=== PATIENT | female | born 1970 | race Caucasian/White ===

== ENCOUNTER 2023-01-06 10:21 | Outpatient (REF) | payer MEDICARE, MEDICAID, SELFPAY ==
[2023-01-06 10:53] LABS: MANUAL DIFF FLAG NO
[2023-01-06 11:15] LABS: Basophils Percent Auto 0.1 % (0-2); Eosinophils Absolute Auto 0.2 X10*3/uL (0.0-0.4); Eosinophils Percent Auto 1.8 % (0-4); Hematocrit 44.6 % (37.0-47.0); Hemoglobin 14.9 g/dl (12.0-16.0); Imm Gran Abs Auto 0.01 X10*3/uL (0.00-0.03); Imm Gran Pct Auto 0.1 % (0.0-0.4); Lymphocytes Absolute Auto 2.8 X10*3/uL (1.2-4.9); Lymphocytes Percent Auto 34.1 % (20-40); Mean Corpuscular HGB Conc 33.4 g/dl (31.0-35.0); Mean Corpuscular Hemoglobin 29.4 pg (27.0-33.0); Mean Platelet Volume 11.1 fL (9.4-12.3); Monocytes Absolute Auto 0.4 X10*3/uL (0.1-1.2); Monocytes Percent Auto 5.1 % (2-11); Neutrophils Absolute Auto 4.8 x10*3/uL (2.0-8.3); Neutrophils Percent Auto 58.8 % (45-73); Platelet Count 238 X10*3/uL (160-400); Red Blood Count 5.07 X10*6/uL (4.20-5.50); Red Cell Distribution Width 12.5 % (11.0-16.0); White Blood Count 8.2 X10*3/uL (4.8-10.8)
[2023-01-06 12:00] LABS: Alanine Aminotransferase 12 U/L (0-31); Albumin Level 4.1 g/dL (3.5-5.0); Alkaline Phosphatase 107 U/L (39-117); Anion Gap 11 (12-20); Aspartate Amino Transferase 16 U/L (5-31); Bilirubin Total 0.3 mg/dL (0.0-1.0); Blood Urea Nitrogen 9 mg/dL (9-16); Calcium 10.3 mg/dL (8.4-10.2); Carbon Dioxide 29 mmol/L (22-29); Chloride 102 mmol/L (96-108); Cholesterol 203 mg/dL; Estimated Glomerular Filt Rate > 60; Glucose Random 120 mg/dL (60-115); HDL Cholesterol 47 mg/dL; LDL Cholesterol Calculated 128 mg/dl; Potassium 4.3 mmol/L (3.3-5.1); Sodium 138 mmol/L (135-145); Total Protein 7.4 g/dL (6.5-8.0); Triglycerides 144 mg/dL
[2023-01-06 12:17] LABS: Thyroid Stimulating Hormone 1.26 uIU/mL (0.32-4.0)
[2023-01-07 03:27] LABS: HBc Num1 0.06 S/CO (0.00-0.79); HBsAGNum1 0.37 S/CO (0.00-0.99); Hepatitis B Core Antibody Nonreactive (Nonreactive); Hepatitis B Surface Antigen Negative (Negative); ~Hepatitis B Surface Antibody REACTIVE (Nonreactive)
[2023-01-11 13:53] LABS: HCV Log PCR <1.18 NOT DETECTED Log IU/mL (NOT DETECTED); HepC Viral Load <15 NOT DETECTED IU/mL (NOT DETECTED)
== END 2023-01-06 10:22 | disposition home or self-care (01) ==
LOC: HO.LAB 10:21
PROVIDERS: PCP Internal Medicine; Visit Provider Internal Medicine
DX: Z00.01 Encounter for general adult medical examination with abnormal findings (principal); R21 Rash and other nonspecific skin eruption; F43.12 Post-traumatic stress disorder, chronic; F43.22 Adjustment disorder with anxiety; B18.2 Chronic viral hepatitis C; F41.8 Other specified anxiety disorders
CPT/HCPCS: 36415; 80053; 80061; 84443; 85025; 86704; 86706; 87340; 87522

== ENCOUNTER 2023-02-03 13:10 | Outpatient (REF) | payer MEDICARE, MEDICAID, SELFPAY ==
[2023-02-03 14:36] LABS: Alanine Aminotransferase 10 U/L (0-31); Albumin Level 4.5 g/dL (3.5-5.0); Alkaline Phosphatase 112 U/L (39-117); Anion Gap 11 (12-20); Aspartate Amino Transferase 17 U/L (5-31); Bilirubin Total 0.4 mg/dL (0.0-1.0); Blood Urea Nitrogen 6 mg/dL (9-16); Calcium 10.3 mg/dL (8.4-10.2); Carbon Dioxide 27 mmol/L (22-29); Chloride 105 mmol/L (96-108); Estimated Average Glucose 103 mg/dL; Estimated Glomerular Filt Rate > 60; Glucose Random 93 mg/dL (60-115); Hemoglobin A1c % 5.2 % (<6.0); Potassium 3.7 mmol/L (3.3-5.1); Sodium 139 mmol/L (135-145); Total Protein 7.8 g/dL (6.5-8.0)
== END 2023-02-03 13:11 | disposition home or self-care (01) ==
LOC: HO.LAB 13:10
PROVIDERS: PCP Internal Medicine; Visit Provider Internal Medicine
DX: B18.2 Chronic viral hepatitis C (principal); R73.01 Impaired fasting glucose; Z72.0 Tobacco use
CPT/HCPCS: 36415; 80053; 83036

== ENCOUNTER 2024-01-08 18:24 | Inpatient (IN) | payer MEDICARE, SELFPAY ==
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
--- NOTE | 2024-01-08 18:26 | ED.PSYCH ---
HPI - Psych General Chief Complaint: Psychiatric Symptoms Stated Complaint: crisis Time Seen by Provider: 01/08/24 18:42 Source: patient, RN notes reviewed and old records reviewed Mode of arrival: ambulatory Limitations: no limitations History of Present Illness ED Provider: Olamide MOORE Narrative: 53-year-old female presents for evaluation depression with suicidal ideation. Patient reports she has had suicidal ideation for the past couple of days. She states that she has experienced lots of family and friends deaths recently. She has been self medicating with marijuana but denies any other drugs She reports that she has not been eating or drinking for the last 4-5 days due to her depression She feels nauseous and weak. She denies any pain Patient reports a plan to ?overdose on a whole bottle of my medications or stab myself. ? The patient is presenting from [facility] on a voluntary inpatient bed search Related Data Home Medications ?Medication ?Instructions ?Recorded ?Confirmed alprazolam 1 mg tablet 1 mg PO BID PRN Agitation 01/08/24 01/08/24 lithium carbonate 150 mg capsule 150 mg PO TID 01/08/24 01/08/24 mirtazapine 15 mg tablet 15 mg PO BEDTIME insomnia 01/08/24 01/08/24 zolpidem 10 mg tablet 10 mg PO BEDTIME 01/08/24 01/08/24 Allergies Allergy/AdvReac Type Severity Reaction Status Date / Time codeine [CODEINE] Allergy Unknown HIVES Unverified 01/08/24 18:30 meperidine [From DEMEROL] Allergy Unknown HIVES Unverified 01/08/24 18:30 Review of Systems Constitutional: Constitutional: Denies body ache(s), Denies chills, Denies fever(s), Denies headache(s), Reports malaise, Reports poor appetite and Reports weakness Eyes: Eyes: Denies blurry vision and Denies exophthalmos ENT: Denies vertigo, Denies dizziness and Denies headache(s) Cardiovascular: Cardiovascular: Denies chest pain and Denies dyspnea Respiratory: Respiratory: Denies cough and Denies dyspnea Gastrointestinal: Gastrointestinal: Denies abdominal pain, Reports nausea and Denies vomiting Musculoskeletal: Musculoskeletal: Denies back pain Integumentary/Breasts: Skin/Breast: Denies rash Neurologic: Denies vertigo, Denies dizziness, Denies headache(s) and Reports weakness Psychiatric: Psychiatric: Reports anxiety, Reports depression and Reports suicidal ideation [facility] Social History Social History Smoked in Last 30 Days: Yes Use of substances other than those prescribed or required for medical reasons: Yes Substance Use Type: Marijuana Advance Directives: No Advance Directives Information Provided: No Do you have a plan to hurt others: No Plan Patient : No Physical Exam Vital Signs: Vital Signs: Last Vital Signs Temp 98.3 F 01/09/24 06:01 Pulse 81 01/09/24 06:01 Resp 16 01/09/24 06:01 BP 111/68 01/09/24 06:01 Pulse Ox 98 01/09/24 06:01 O2 Del Method Room Air 01/09/24 06:01 BMI result Body Mass Index 28.3 Const: General: healthy appearing, comfortable, no acute distress, alert and awake Orientation/consciousness: patient oriented x3 HEENT: Head: Yes normocephalic and Yes atraumatic Eyes: Eyelids: Yes eyelids normal Conjunctivae: conjunctivae normal Sclerae: sclerae normal Corneas: corneas normal Pupils: Equal, round and reactive pupils present EOM: EOMs intact bilaterally Neck: Neck: Yes full ROM Resp: Effort & Inspection: normal respiratory effort, able to speak in complete sentences and not labored Cardio: Rate: regular rate Rhythm: regular rhythm GI: Inspection: No distended Palpation (GI): Soft to palpation, not firm, nontender, no guarding and not rigid Skin: General skin exam: no rashes or lesions noted and elasticity normal Neuro: General: patient oriented x3 Cranial nerves: Yes CN's II-XII intact bilaterally, Yes Equal, round and reactive pupils present and Yes Bilaterally intact EOM present Cognition (Neuro): normal cognition Psych: Appearance: grossly normal Mental Status: mental status grossly normal Speech and movement: Normal speech and movement present Affect: Sad affect present Attitude: cooperative Thought process: Normal thought process present Thought content: Suicidality present, no homicidality, no delusions and Depressive thoughts present Course Course Course Narrative: This is a rapid medical exam performed by Ismael Bravo NP: Additional HPI, ROS, PE not included below will be deferred to primary provider. Patient is a 53-year-old female with history of ADHD, PTSD, depression presenting to the emergency department with complaint of depression and suicidal ideation worsening. States her son on 10/17, brother in law with stage 4 CA, cousin recently diagnosed with leukemia, has been fighting with her other children since her son , all of this is making her feel suicidal. Plan to overdose on pills. Has Xanax, ambien, and many other medications at home. Plan: med clearance then CARE team shivam 01/09/2024 at 08:31 hours,Dr. Esvin Whitehead's note Start physician observation The patient has been in the emergency department for proximally 14 hours. The patient was evaluated by the care team and is a voluntary inpatient bed search for an [facility] bed for psychosis and vague suicidal ideation. There were no reported incidents on this patient by the overnight staff.Patient will remain in the emergency department Behavioral Health Unit until disposition can be determined or until patient's symptoms improve over time. Medications Administered Generic Name Dose Route Start Last Admin Trade Name Freq PRN Reason Stop Dose Admin Alprazolam 1 mg 01/08/24 19:23 01/09/24 07:30 Alprazolam 0.5 Mg Tablet PO 1 mg BID PRN Administration Agitation Helemano Carbonate 150 mg 01/08/24 21:00 01/09/24 08:03 Helemano Carbonate 300 Mg Tablet PO 150 mg TID LOUISE Administration Mirtazapine 15 mg 01/08/24 21:00 01/08/24 20:50 Mirtazapine 15 Mg Tablet PO 15 mg BEDTIME LOUISE Administration Zolpidem Tartrate 10 mg 01/08/24 21:00 01/08/24 20:50 Zolpidem Tartrate 5 Mg Tablet PO 10 mg BEDTIME LOUISE Administration Discontinued Medications Generic Name Dose Route Start Last Admin Trade Name Freq PRN Reason Stop Dose Admin Lorazepam 2 mg 01/08/24 19:25 01/08/24 19:31 Lorazepam 1 Mg Tablet PO 01/08/24 19:26 2 mg ONCE ONE Administration Medical Decision Making Medical Decision Making MDM Narrative: 53-year-old female presents for evaluation of suicidal ideation. Plan for medical clearance, she is already a voluntary bed search and does not require a care team consult at this time. Lab Data 01/08/24 19:34 01/08/24 19:35 Labs: Lab Results 01/08/24 01/08/24 01/08/24 Range/Units 18:59 19:34 19:35 WBC 8.8 (4.8-10.8) X10*3/uL RBC 5.80 H (4.20-5.50) X10*6/uL Hgb 17.6 H (12.0-16.0) g/dl Hct 50.0 H (37.0-47.0) % MCV 86.2 (80.0-98.0) fL MCH 30.3 (27.0-33.0) pg MCHC 35.2 H (31.0-35.0) g/dl RDW 12.6 (11.0-16.0) % Plt Count 244 (160-400) X10*3/uL MPV 11.0 (9.4-12.3) fL Immature Gran % (Auto) 0.2 (0.0-0.4) % Neut % (Auto) 60.7 (45-73) % Lymph % (Auto) 30.0 (20-40) % [place] % (Auto) 6.4 (2-11) % Eos % (Auto) 2.4 (0-4) % Baso % (Auto) 0.3 (0-2) % Lymph # (Auto) 2.6 (1.2-4.9) X10*3/uL [place] # (Auto) 0.6 (0.1-1.2) X10*3/uL Eos # (Auto) 0.2 (0.0-0.4) X10*3/uL Baso # (Auto) 0.0 (0.0-0.2) X10*3/uL Abs Immat Gran (auto) 0.02 (0.00-0.03) X10*3/uL Absolute Neuts (auto) 5.3 (2.0-8.3) x10*3/uL Absolute Nucleated RBC 0.000 (0.0-0.012) X10*3/uL Nucleated RBC % (auto) 0.0 (0.0-0.2) /100WBC Sodium 140 (135-145) mmol/L Potassium 4.3 (3.3-5.1) mmol/L Chloride 103 (96-108) mmol/L Carbon Dioxide 27 (22-29) mmol/L Anion Gap 14 (12-20) BUN 6 L (9-16) mg/dL Creatinine 0.86 (0.5-1.4) mg/dL Estim Creat Clear Calc 74.0 Estimated GFR > 60 Random Glucose 108 (60-115) mg/dL Calcium 10.8 H (8.4-10.2) mg/dL Total Bilirubin 0.5 (0.0-1.0) mg/dL AST 23 (5-31) U/L ALT 11 (0-31) U/L Alkaline Phosphatase 110 (39-117) U/L Total Protein 8.7 H (6.5-8.0) g/dL Albumin 4.9 (3.5-5.0) g/dL Urine Color Dark Yellow Urine Appearance Turbid Urine pH 5.5 (5.0-9.0) Ur Specific [place] 1.020 (1.005-1.025) Urine Protein 30 (1+) H (Neg-Trace) mg/dL Urine Glucose (UA) Negative (Negative) mg/dL Urine Ketones Trace (Negative) mg/dL Urine Blood Moderate (2+) H (Negative) Urine Nitrite Negative (Negative) Ur Leukocyte Esterase Small (1+) H (Negative) Urine RBC 6-10 H (0-2) /HPF Urine WBC 0-5 (0-5) /HPF Ur Squamous Epith Cells >20 (0-2) /HPF Urine Bacteria 4+ (None Seen) Hyaline Casts 11-20 (0-2) /LPF Salicylates < 5.0 L (15-30) mg/dL Urine Opiates Screen Not Detected (Not Detect) Ur Buprenorphine Scrn Not Detected (Not Detect) ng/mL Ur Oxycodone Screen Not Detected (Not Detect) ng/mL Urine Methadone Screen Not Detected (Not Detect) ng/mL Urine Fentanyl Screen Not Detected (Not Detect) Acetaminophen < 3 (<30) mcg/mL Ur Barbiturates Screen Not Detected (Not Detect) Ur Phencyclidine Scrn Not Detected (Not Detect) Ur Amphetamines Screen Not Detected (Not Detect) U Benzodiazepines Scrn POSITIVE H (Not Detect) Urine Cocaine Screen Not Detected (Not Detect) U Marijuana (THC) Screen POSITIVE H (Not Detect) Ethyl Alcohol < 10 mg/dL Discharge Plan Discharge Clinical Impression: Suicidal ideation Patient Disposition: Still a Patient Prescriptions: No Action alprazolam 1 mg tablet 1 mg PO BID PRN (Reason: Agitation) lithium carbonate 150 mg capsule 150 mg PO TID mirtazapine 15 mg tablet 15 mg PO BEDTIME zolpidem 10 mg tablet 10 mg PO BEDTIME Interventions: [place]-Suicide Risk Severity Scale Last Done: 01/08/24 18:46 Print Language: Georgian
[2024-01-08 18:27] VITALS: BP 135/85; PULSE 100; RESP 24; TEMP 37; O2SAT 97; BMI 28.3
--- NOTE | 2024-01-08 18:34 | MHC.CARE ---
Per [facility]- pt is a voluntary IPLOC. Pt has been struggling with depression since her son was murdered in September. Pt presents with psychosis, vague SI
[2024-01-08 18:46] VITALS: RESP 14
[2024-01-08 19:19] LABS: Amphetamine Screen Urine Not Detected (Not Detect); Barbiturates, Urine Not Detected (Not Detect); Benzodiazepines Screen Urine POSITIVE (Not Detect); Buprenorphine Scr Not Detected (Not Detect); Cannabinoid Screen Urine POSITIVE (Not Detect); Cocaine Screen Urine Not Detected (Not Detect); Fentanyl, urine Not Detected (Not Detect); Methadone Screen, Urine Not Detected (Not Detect); Opiate Screen Urine Not Detected (Not Detect); Oxycodone Screen Urine Not Detected (Not Detect); Phencyclidine Screen Urine Not Detected (Not Detect)
[2024-01-08 19:22] LABS: Appearance Urine Turbid; Color Urine Dark Yellow; Glucose Urine UA Negative (Negative); Leukocyte Esterase Urine Small (1+) (Negative); Nitrite Urine Negative (Negative); PH 5.5 (5.0-9.0); UMIC TRIGGER UACC YES; Urine Blood Moderate (2+) (Negative); Urine Ketones Trace mg/dL (Negative); Urine Protein 30 (1+) mg/dL (Neg-Trace)
[2024-01-08] MEDS: LORazepam 1 MG TABLET 2 MG PO (19:31)
[2024-01-08 19:40] LABS: Bacteria Urine 4+ (None Seen); Squamous Epithelial Cell Urine >20 /HPF (0-2); UACC Culture Trigger YES; WBC Urine 0-5 /HPF (0-5)
[2024-01-08 19:41] LABS: MANUAL DIFF FLAG NO
[2024-01-08 19:42] LABS: Basophils Percent Auto 0.3 % (0-2); Eosinophils Absolute Auto 0.2 X10*3/uL (0.0-0.4); Eosinophils Percent Auto 2.4 % (0-4); Hemoglobin 17.6 g/dl (12.0-16.0); Imm Gran Abs Auto 0.02 X10*3/uL (0.00-0.03); Imm Gran Pct Auto 0.2 % (0.0-0.4); Lymphocytes Absolute Auto 2.6 X10*3/uL (1.2-4.9); Mean Corpuscular HGB Conc 35.2 g/dl (31.0-35.0); Mean Corpuscular Hemoglobin 30.3 pg (27.0-33.0); Mean Corpuscular Volume 86.2 fL (80.0-98.0); Monocytes Absolute Auto 0.6 X10*3/uL (0.1-1.2); Monocytes Percent Auto 6.4 % (2-11); Neutrophils Absolute Auto 5.3 x10*3/uL (2.0-8.3); Neutrophils Percent Auto 60.7 % (45-73); Platelet Count 244 X10*3/uL (160-400); Red Cell Distribution Width 12.6 % (11.0-16.0); White Blood Count 8.8 X10*3/uL (4.8-10.8)
--- NOTE | 2024-01-08 19:42 | PC.NURSE ---
patient just arrived recently on unit, apparently inpatient psych bed search as determined by [facility] agency, mildly stressed, rocking seemingly to comfort self on rear communal couch where she resides, t/w obtained order for ativan 2mg po and administered, result pending.
[2024-01-08 19:59] LABS: Acetaminophen LAB < 3 mcg/mL (<30); Alanine Aminotransferase 11 U/L (0-31); Albumin Level 4.9 g/dL (3.5-5.0); Alkaline Phosphatase 110 U/L (39-117); Anion Gap 14 (12-20); Aspartate Amino Transferase 23 U/L (5-31); Bilirubin Total 0.5 mg/dL (0.0-1.0); Blood Urea Nitrogen 6 mg/dL (9-16); Calcium 10.8 mg/dL (8.4-10.2); Carbon Dioxide 27 mmol/L (22-29); Chloride 103 mmol/L (96-108); Estimated Glomerular Filt Rate > 60; Ethanol < 10 mg/dL; Glucose Random 108 mg/dL (60-115); Potassium 4.3 mmol/L (3.3-5.1); Salicylate < 5.0 mg/dL (15-30); Sodium 140 mmol/L (135-145); Total Protein 8.7 g/dL (6.5-8.0)
[2024-01-08] MEDS: Lithium Carbonate 300 MG TABLET 150 MG PO (20:49)
[2024-01-08] MEDS: Zolpidem Tartrate 5 MG TABLET 10 MG PO (20:50)
[2024-01-08] MEDS: Mirtazapine 15 MG TABLET PO (20:50)
--- NOTE | 2024-01-09 | ECG_ITS ---
Test Reason : R/O QTC PROLONGATION Blood Pressure : / mmHG Vent. Rate : 075 BPM Atrial Rate : 075 BPM P-R Int : 178 ms QRS Dur : 096 ms QT Int : 384 ms P-R-T Axes : 076 082 069 degrees QTc Int : 428 ms Normal sinus rhythm Normal ECG When compared with ECG of 14-JUL-2015 17:16, No significant change was found Referred By: Jae Maguire Electronically Signed By:KANDY GRANADOS
[2024-01-09 06:01] VITALS: BP 111/68; PULSE 81; RESP 16; TEMP 36.8; O2SAT 98
[2024-01-09] MEDS: ALPRAZolam 0.5 MG TABLET 1 MG PO (07:30)
--- NOTE | 2024-01-09 07:34 | PC.NURSE ---
Assumed care of patient at 0645, patient appears to be anxious this morning, rocking back and forth on the couch in BH 7, tearful. Patient unwilling to elaborate on stressors at this time. Patient offered PRN Alprazolam, patient accepted, administered per JUL. Continue plan of care for voluntary inpatient bedsearch via [facility] at this time
[2024-01-09] MEDS: Lithium Carbonate 300 MG TABLET 150 MG PO ×3 (08:03→21:48)
[2024-01-09] MEDS: Nicotine 21 MG PATCH.TD24 TRANSDERMA (09:59)
[2024-01-09] MEDS: hydrOXYzine HCL 25 MG TABLET PO ×2 (10:54→21:48)
[2024-01-09] MEDS: HaloperidoL 5 MG TABLET 10 MG PO (11:53)
[2024-01-09] MEDS: LORazepam 1 MG TABLET 2 MG PO (11:53)
[2024-01-09] MEDS: diphenhydrAMINE HCL 25 MG CAPSULE 50 MG PO (11:53)
--- NOTE | 2024-01-09 12:34 | MHC.EDTECH ---
patient belongings are in Locker 5 as of 1237 on 01/09/24
[2024-01-09 15:17] VITALS: RESP 16
[2024-01-09 15:27] VITALS: BP 110/62; PULSE 84; RESP 16; TEMP 36.4; O2SAT 99
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
[2024-01-09 20:00] VITALS: RESP 16
[2024-01-09] MEDS: Zolpidem Tartrate 5 MG TABLET 10 MG PO (21:48)
[2024-01-09] MEDS: Mirtazapine 15 MG TABLET PO (21:48)
[2024-01-10 08:00] VITALS: RESP 18
[2024-01-10] MEDS: Nicotine 21 MG PATCH.TD24 TRANSDERMA (08:35)
[2024-01-10] MEDS: ALPRAZolam 0.5 MG TABLET 1 MG PO ×2 (08:35→20:24)
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
[2024-01-10 09:16] LABS: Cholesterol 198 mg/dL (<200); HDL Cholesterol 47 mg/dL (>40); LDL Cholesterol Calculated 126 mg/dL (<100); Triglycerides 126 mg/dL (<150)
--- NOTE | 2024-01-10 09:19 | PC.NURSE ---
Cecil refused [place] due to being taken off of it a month ago. I am not an alcoholic. Kendall Joel MD and Shabana Ludwig NP made aware.
[2024-01-10 09:29] LABS: Estimated Average Glucose 108 mg/dL; Hemoglobin A1c % 5.4 % (<6.0)
[2024-01-10 12:59] LABS: Folate 6.5 ng/mL (> or = 4.0); Vitamin B12 546 pg/mL (200-900)
[2024-01-10] MEDS: hydrOXYzine HCL 25 MG TABLET PO ×2 (13:28→19:48)
[2024-01-10] MEDS: OLANZapine 5 MG TABLET PO (14:11)
--- NOTE | 2024-01-10 14:17 | MHC.CLN ---
RE: CONSULT HT 64 WT 165# IBW 120#+/-10% PT IS 138% IBW INDICATES OBESE FOR HT; BMI 28.3 PT REPORTS WT LOSS BUT NO PREVIOUS WT HX TO REVIEW REVIEWED LABS ENN: 1400KCALS, 61G PROTEIN, 1830ML FLUID DIET REGULAR-APPROPRIATE PLAN: MONITOR PO INTAKE CLOSELY; IF PO INTAKE <25% X 3 DAYS RECOMMEND ADDING NUTRITION SUPPLEMENT PT IS AT LOW NUTRITION RISK AT THIS TIME
[2024-01-10] MEDS: OLANZapine 10 MG TABLET PO (19:48)
[2024-01-10] MEDS: Mirtazapine 15 MG TABLET PO (20:59)
[2024-01-10] MEDS: Prazosin HCL 1 MG CAPSULE PO (20:59)
[2024-01-10 21:00] VITALS: BP 118/56; PULSE 74; RESP 16; TEMP 36.4; O2SAT 99
[2024-01-10] MEDS: Zolpidem Tartrate 5 MG TABLET 10 MG PO (21:00)
[2024-01-11] MEDS: ALPRAZolam 0.5 MG TABLET 1 MG PO (03:24)
[2024-01-11] MEDS: OLANZapine 5 MG TABLET PO ×2 (03:24→08:05)
--- NOTE | 2024-01-11 03:26 | PC.NURSE ---
Cecil reported elevated anxiety with racing thoughts. Patient reports feeling mildly agitated due to her thoughts. Patient given Zyprexa PO prn and Xanax PO prn
[2024-01-11 07:45] VITALS: BP 118/56; PULSE 77; RESP 18; TEMP 36.9; O2SAT 96
[2024-01-11] MEDS: hydrOXYzine HCL 25 MG TABLET PO (08:02)
[2024-01-11] MEDS: Nicotine 21 MG PATCH.TD24 TRANSDERMA (08:02)
[2024-01-11] MEDS: clonazePAM 1 MG TABLET PO ×3 (10:50→20:37)
[2024-01-11] MEDS: OLANZapine 10 MG TABLET PO ×2 (13:45→20:37)
--- NOTE | 2024-01-11 16:36 | HO.PSYCHPN ---
Subjective Subjective Date of Service: 01/11/24 Reason For Visit: SI Interim History: somewhat more calm than yesterday. poro sleep, up 4-5 times overnight with nightmares. zyprexa 5 mg PRN not effective. agreeable to increase remeron to 30 for sleep, prazosin to 2 for nightmares, and zyprexa to 10 PRN for severe anxiety. per staff, dep/anx. irritable, withdrawn. vague SI/HI. rocking. taking meds. slept about 6 hours. Mental Status Exam Mental Status Exam Narrative: adequately dressed and groomed. less rocking back and forth in chair. less restless. cooperative. speech incr rate, nml amount. nml loudness, tone. decr latency. thoughts linear and logical without delusions or paranoia. affect constricted, hyper-intense, non-labile. mood anxious. endorsing vague SI/HI to staff. no AVH. Diagnostics Vital Signs (24Hr): Vital Signs - 24 hr 01/10/24 21:00 01/11/24 07:45 Temperature 97.6 F 98.5 F Pulse Rate 74 77 Respiratory Rate 16 18 Blood Pressure 118/56 L 118/56 L Pulse Oximetry 99 96 Oxygen Delivery Method Room Air Room Air BMI result Body Mass Index 28.3 Labs 01/08/24 19:34 01/08/24 19:35 Labs: Laboratory Results - last 48 hr 01/10/24 08:30 Estimat Average Glucose 108 Hemoglobin A1c % 5.4 Triglycerides 126 Cholesterol 198 LDL Cholesterol, Calc 126 H HDL Cholesterol 47 Vitamin B12 546 Folate 6.5 TSH 2.80 Free T4 0.90 Medications Medications Current Medications Acetaminophen (Acetaminophen 325 Mg Tablet) 650 mg PO Q6H PRN PRN Reason: Headache/Pain Mild Scale (1-3) Al Hydroxide/Mg Hydroxide (Magnesium Hydrox/Alum Hydrox 30 Ml Oral.Susp) 30 ml PO Q6H PRN PRN Reason: Heartburn/Nausea Clonazepam (Clonazepam 1 Mg Tablet) 1 mg PO TID LOUISE Last Admin: 01/11/24 14:43 Dose: 1 mg Hydroxyzine HCl (Hydroxyzine Hcl 25 Mg Tablet) 25 mg PO Q6H PRN PRN Reason: Anxiety Last Admin: 01/11/24 08:02 Dose: 25 mg Magnesium Hydroxide (Milk Of Magnesia 30 Ml Oral.Susp) 30 ml PO DAILY PRN PRN Reason: Constipation Mirtazapine (Mirtazapine 30 Mg Tablet) 30 mg PO BEDTIME LOUISE Mirtazapine (Mirtazapine 15 Mg Tablet) 15 mg PO BEDTIME PRN PRN Reason: insomnia Nicotine (Nicotine 21 Mg Patch.Td24) 21 mg TRANSDERMA DAILY LOUISE Last Admin: 01/11/24 08:02 Dose: 21 mg Nicotine Polacrilex (Nicotine Polacrilex 2 Mg Gum) 2 mg BUCCAL Q2H PRN PRN Reason: Nicotine Cravings Olanzapine (Olanzapine 10 Mg Tablet) 10 mg PO BEDTIME LOUISE Last Admin: 01/10/24 19:48 Dose: 10 mg Olanzapine (Olanzapine 10 Mg Tablet) 10 mg PO Q4H PRN PRN Reason: agitation Last Admin: 01/11/24 13:45 Dose: 10 mg Prazosin HCl (Prazosin Hcl 1 Mg Capsule) 2 mg PO BEDTIME LOUISE; Protocol Zolpidem Tartrate (Zolpidem Tartrate 5 Mg Tablet) 10 mg PO BEDTIME LOUISE Last Admin: 01/10/24 21:00 Dose: 10 mg Allergies Allergies Allergy/AdvReac Type Severity Reaction Status Date / Time codeine [CODEINE] Allergy Unknown HIVES Verified 01/09/24 15:53 meperidine [From DEMEROL] Allergy Unknown HIVES Verified 01/09/24 15:53 Assessment & Plan Assessment & Plan (1) Chronic posttraumatic stress disorder: Status: Acute Code(s): F43.12 - Post-traumatic stress disorder, chronic (2) Suicidal ideation: Status: Acute Code(s): R45.851 - Suicidal ideations (3) Homicidal ideation: Status: Acute Code(s): R45.850 - Homicidal ideations Plan 01/09: start prazosin at HS for nightmares and insomnia in PTSD. start zyprexa PRNs for agit/anx. start zyp 10 at HS for insomnia/agitation. DC lithium as Sx are adequately explained by PTSD Dx presently. otherwise continue current mgmt. 01/10: increase remeron to 30 for sleep, prazosin to 2 for nightmares, and zyprexa to 10 PRN for severe anxiety. affect slightly less intense than yesterday. still doing a lot of rocking. Reason for continued inpatient stay Substantial Risk for: harm to self, harm to others and inability to function Time Spent With Patient Time: Total time managing care of this patient today _25___ minutes.
[2024-01-11 21:30] VITALS: BP 122/60; PULSE 88; RESP 16
[2024-01-11] MEDS: Zolpidem Tartrate 5 MG TABLET 10 MG PO (21:33)
[2024-01-11] MEDS: Mirtazapine 30 MG TABLET PO (21:33)
[2024-01-11] MEDS: Prazosin HCL 1 MG CAPSULE 2 MG PO (21:33)
[2024-01-12] MEDS: hydrOXYzine HCL 25 MG TABLET PO ×3 (00:05→12:22)
[2024-01-12] MEDS: OLANZapine 10 MG TABLET PO ×5 (00:05→20:15)
[2024-01-12] MEDS: Mirtazapine 15 MG TABLET PO ×2 (00:06→20:17)
[2024-01-12 07:00] VITALS: BMI 25.0
[2024-01-12] MEDS: Nicotine 21 MG PATCH.TD24 TRANSDERMA (07:06)
[2024-01-12 08:00] VITALS: BP 110/61; PULSE 90; RESP 20; TEMP 36.6; O2SAT 99
[2024-01-12] MEDS: clonazePAM 1 MG TABLET PO ×3 (08:39→20:15)
[2024-01-12] MEDS: Acetaminophen 325 MG TABLET 650 MG PO ×2 (09:09→20:22)
[2024-01-12 19:30] VITALS: BP 125/61; PULSE 94; RESP 16; TEMP 36.6; O2SAT 97
[2024-01-12] MEDS: Mirtazapine 30 MG TABLET PO (20:15)
[2024-01-12] MEDS: Prazosin HCL 1 MG CAPSULE 3 MG PO (20:16)
[2024-01-12] MEDS: Zolpidem Tartrate 5 MG TABLET 10 MG PO (20:16)
--- NOTE | 2024-01-12 21:05 | HO.PSYCHPN ---
Subjective Subjective Date of Service: 01/12/24 Reason For Visit: SI Interim History: rocking, anxious, poor sleep. acknowledges episode last night of tying sheet around neck and then changing her mind and removing it. informed of change to Q5 min checks. reporting anxiety mildly decreased. nightmares continue, no sided effects from prazosin, agrees to increase to 3 mg QHS. per staff, dep/anx 10. passive SI. taking meds. rocking back and forth. mourning son's . anxious, guarded, visible. slept about 5 hours. Mental Status Exam Mental Status Exam Narrative: adequately dressed and groomed. less rocking back and forth in chair. less restless. cooperative. speech incr rate, nml amount. nml loudness, tone. decr latency. thoughts linear and logical without delusions or paranoia. affect constricted, hyper-intense, non-labile. mood anxious. endorsing vague SI to staff. near-SA last NOC. no AVH. Diagnostics Vital Signs (24Hr): Vital Signs - 24 hr 01/11/24 21:30 01/12/24 08:00 01/12/24 19:30 Temperature 97.8 F 97.8 F Pulse Rate 88 90 94 Respiratory Rate 16 20 16 Blood Pressure 122/60 110/61 125/61 Pulse Oximetry 99 97 Oxygen Delivery Method Room Air Room Air BMI result Body Mass Index 25.0 Labs 01/08/24 19:34 01/08/24 19:35 Medications Medications Current Medications Acetaminophen (Acetaminophen 325 Mg Tablet) 650 mg PO Q6H PRN PRN Reason: Headache/Pain Mild Scale (1-3) Last Admin: 01/12/24 20:22 Dose: 650 mg Al Hydroxide/Mg Hydroxide (Magnesium Hydrox/Alum Hydrox 30 Ml Oral.Susp) 30 ml PO Q6H PRN PRN Reason: Heartburn/Nausea Clonazepam (Clonazepam 1 Mg Tablet) 1 mg PO TID LOUISE Last Admin: 01/12/24 20:15 Dose: 1 mg Hydroxyzine HCl (Hydroxyzine Hcl 25 Mg Tablet) 25 mg PO Q6H PRN PRN Reason: Anxiety Last Admin: 01/12/24 12:22 Dose: 25 mg Magnesium Hydroxide (Milk Of Magnesia 30 Ml Oral.Susp) 30 ml PO DAILY PRN PRN Reason: Constipation Mirtazapine (Mirtazapine 30 Mg Tablet) 30 mg PO BEDTIME LOUISE Last Admin: 01/12/24 20:15 Dose: 30 mg Mirtazapine (Mirtazapine 15 Mg Tablet) 15 mg PO BEDTIME PRN PRN Reason: insomnia Last Admin: 01/12/24 20:17 Dose: 15 mg Nicotine (Nicotine 21 Mg Patch.Td24) 21 mg TRANSDERMA DAILY LOUISE Last Admin: 01/12/24 07:06 Dose: 21 mg Nicotine Polacrilex (Nicotine Polacrilex 2 Mg Gum) 2 mg BUCCAL Q2H PRN PRN Reason: Nicotine Cravings Olanzapine (Olanzapine 10 Mg Tablet) 10 mg PO BEDTIME LOUISE Last Admin: 01/12/24 20:15 Dose: 10 mg Olanzapine (Olanzapine 10 Mg Tablet) 10 mg PO Q4H PRN PRN Reason: agitation Last Admin: 01/12/24 17:20 Dose: 10 mg Prazosin HCl (Prazosin Hcl 1 Mg Capsule) 3 mg PO BEDTIME LOUISE; Protocol Last Admin: 01/12/24 20:16 Dose: 3 mg Zolpidem Tartrate (Zolpidem Tartrate 5 Mg Tablet) 10 mg PO BEDTIME LOUISE Last Admin: 01/12/24 20:16 Dose: 10 mg Allergies Allergies Allergy/AdvReac Type Severity Reaction Status Date / Time codeine [CODEINE] Allergy Unknown HIVES Verified 01/09/24 15:53 meperidine [From DEMEROL] Allergy Unknown HIVES Verified 01/09/24 15:53 Assessment & Plan Assessment & Plan (1) Chronic posttraumatic stress disorder: Status: Acute Code(s): F43.12 - Post-traumatic stress disorder, chronic (2) Suicidal ideation: Status: Acute Code(s): R45.851 - Suicidal ideations (3) Homicidal ideation: Status: Acute Code(s): R45.850 - Homicidal ideations Plan 01/09: start prazosin at HS for nightmares and insomnia in PTSD. start zyprexa PRNs for agit/anx. start zyp 10 at HS for insomnia/agitation. DC lithium as Sx are adequately explained by PTSD Dx presently. otherwise continue current mgmt. 01/10: increase remeron to 30 for sleep, prazosin to 2 for nightmares, and zyprexa to 10 PRN for severe anxiety. affect slightly less intense than yesterday. still doing a lot of rocking. start klonopin 1 TID. 01/11: increase prazosin to 3 mg tonight. continue other meds. no substantial change in presentation from yesterday. Reason for continued inpatient stay Substantial Risk for: harm to self, harm to others and inability to function Time Spent With Patient Time: Total time managing care of this patient today __25__ minutes.
[2024-01-13] MEDS: hydrOXYzine HCL 25 MG TABLET PO (00:29)
[2024-01-13] MEDS: OLANZapine 10 MG TABLET PO ×4 (00:29→20:52)
[2024-01-13] MEDS: Nicotine 21 MG PATCH.TD24 TRANSDERMA (06:52)
[2024-01-13 07:20] VITALS: BP 114/55; PULSE 92; RESP 14; TEMP 36.4; O2SAT 97
[2024-01-13] MEDS: clonazePAM 1 MG TABLET PO ×3 (08:31→20:52)
--- NOTE | 2024-01-13 17:50 | HO.PSYCHPN ---
Subjective Subjective Date of Service: 01/13/24 Reason For Visit: SI Interim History: poor sleep. nightmares. agreeable to increase prazosin to 4 mg, remeron to 30. anxiety remains moderately improved. per staff, anx. taking meds. using PRNs. rocking. tearful. dep 10 anx 9. c/o back and neck pain. irritable. slept about 4 hours, broken sleep. Mental Status Exam Mental Status Exam Narrative: adequately dressed and groomed. less rocking back and forth in chair. less restless. cooperative. speech incr rate, nml amount. nml loudness, tone. decr latency. thoughts linear and logical without delusions or paranoia. affect constricted, hyper-intense, non-labile. mood anxious. +SI. no HI/AVH expressed. Diagnostics Vital Signs (24Hr): Vital Signs - 24 hr 01/12/24 19:30 01/13/24 07:20 Temperature 97.8 F 97.5 F Pulse Rate 94 92 Respiratory Rate 16 14 Blood Pressure 125/61 114/55 L Pulse Oximetry 97 97 Oxygen Delivery Method Room Air Room Air BMI result Body Mass Index 25.0 Labs 01/08/24 19:34 01/08/24 19:35 Medications Medications Current Medications Acetaminophen (Acetaminophen 325 Mg Tablet) 650 mg PO Q6H PRN PRN Reason: Headache/Pain Mild Scale (1-3) Last Admin: 01/12/24 20:22 Dose: 650 mg Al Hydroxide/Mg Hydroxide (Magnesium Hydrox/Alum Hydrox 30 Ml Oral.Susp) 30 ml PO Q6H PRN PRN Reason: Heartburn/Nausea Clonazepam (Clonazepam 1 Mg Tablet) 1 mg PO TID [facility] Last Admin: 01/13/24 14:26 Dose: 1 mg Hydroxyzine HCl (Hydroxyzine Hcl 50 Mg Tablet) 50 mg PO Q6H PRN PRN Reason: Anxiety Magnesium Hydroxide (Milk Of Magnesia 30 Ml Oral.Susp) 30 ml PO DAILY PRN PRN Reason: Constipation Mirtazapine (Mirtazapine 30 Mg Tablet) 30 mg PO BEDTIME [facility] Last Admin: 01/12/24 20:15 Dose: 30 mg Mirtazapine (Mirtazapine 30 Mg Tablet) 30 mg PO BEDTIME PRN PRN Reason: insomnia Nicotine (Nicotine 21 Mg Patch.Td24) 21 mg TRANSDERMA DAILY [facility] Last Admin: 01/13/24 06:52 Dose: 21 mg Nicotine Polacrilex (Nicotine Polacrilex 2 Mg Gum) 2 mg BUCCAL Q2H PRN PRN Reason: Nicotine Cravings Olanzapine (Olanzapine 10 Mg Tablet) 10 mg PO BEDTIME LOUISE Last Admin: 01/12/24 20:15 Dose: 10 mg Olanzapine (Olanzapine 10 Mg Tablet) 10 mg PO Q4H PRN PRN Reason: agitation Last Admin: 01/13/24 04:31 Dose: 10 mg Prazosin HCl (Prazosin Hcl 1 Mg Capsule) 4 mg PO BEDTIME LOUISE; Protocol Zolpidem Tartrate (Zolpidem Tartrate 5 Mg Tablet) 10 mg PO BEDTIME LOUISE Last Admin: 01/12/24 20:16 Dose: 10 mg Allergies Allergies Allergy/AdvReac Type Severity Reaction Status Date / Time codeine [CODEINE] Allergy Unknown HIVES Verified 01/09/24 15:53 meperidine [From DEMEROL] Allergy Unknown HIVES Verified 01/09/24 15:53 Assessment & Plan Assessment & Plan (1) Chronic posttraumatic stress disorder: Status: Acute Code(s): F43.12 - Post-traumatic stress disorder, chronic (2) Suicidal ideation: Status: Acute Code(s): R45.851 - Suicidal ideations (3) Homicidal ideation: Status: Acute Code(s): R45.850 - Homicidal ideations Plan 01/09: start prazosin at HS for nightmares and insomnia in PTSD. start zyprexa PRNs for agit/anx. start zyp 10 at HS for insomnia/agitation. DC lithium as Sx are adequately explained by PTSD Dx presently. otherwise continue current mgmt. 01/10: increase remeron to 30 for sleep, prazosin to 2 for nightmares, and zyprexa to 10 PRN for severe anxiety. affect slightly less intense than yesterday. still doing a lot of rocking. start klonopin 1 TID. 01/11: increase prazosin to 3 mg tonight. continue other meds. no substantial change in presentation from yesterday. 01/12: remains with modest improvement, +SI, insomnia, nightmares. increase remeron to 30 and prazosin to 4. Reason for continued inpatient stay Substantial Risk for: harm to self, harm to others, inability to function and rapid decompensation Time Spent With Patient Time: Total time managing care of this patient today __25__ minutes.
[2024-01-13] MEDS: Acetaminophen 325 MG TABLET 650 MG PO (18:29)
[2024-01-13] MEDS: hydrOXYzine HCL 50 MG TABLET PO (20:07)
[2024-01-13 20:45] VITALS: BP 112/58; PULSE 94; RESP 18; TEMP 36.4; O2SAT 98
[2024-01-13] MEDS: Mirtazapine 30 MG TABLET PO ×2 (20:52)
[2024-01-13] MEDS: Zolpidem Tartrate 5 MG TABLET 10 MG PO (20:52)
[2024-01-13] MEDS: Prazosin HCL 1 MG CAPSULE 4 MG PO (20:52)
[2024-01-14] MEDS: OLANZapine 10 MG TABLET PO ×4 (02:30→18:19)
[2024-01-14] MEDS: hydrOXYzine HCL 50 MG TABLET PO ×2 (02:30→15:21)
[2024-01-14] MEDS: Nicotine 21 MG PATCH.TD24 TRANSDERMA (06:56)
[2024-01-14] MEDS: Acetaminophen 325 MG TABLET 650 MG PO (06:58)
[2024-01-14 07:10] VITALS: BP 116/63; PULSE 95; RESP 18; TEMP 36.4; O2SAT 97
[2024-01-14] MEDS: Lidocaine 4 % Patch ADH..PATCH 1 PATCH TRANSDERMA (07:48)
[2024-01-14] MEDS: clonazePAM 1 MG TABLET PO ×3 (08:16→21:25)
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
[2024-01-14 20:00] VITALS: BP 113/59; PULSE 98; RESP 16; TEMP 36.5; O2SAT 98
[2024-01-14] MEDS: chlorproMAZINE HCl 100 MG TABLET PO (21:24)
[2024-01-14 21:25] VITALS: BP 147/74
[2024-01-14] MEDS: Prazosin HCL 5 MG CAPSULE PO (21:25)
[2024-01-14] MEDS: Mirtazapine 30 MG TABLET PO (21:25)
[2024-01-14] MEDS: Zolpidem Tartrate 5 MG TABLET 10 MG PO (21:26)
[2024-01-15] MEDS: OLANZapine 10 MG TABLET PO (00:58)
[2024-01-15] MEDS: Mirtazapine 15 MG TABLET PO ×2 (00:58→23:23)
[2024-01-15] MEDS: Acetaminophen 325 MG TABLET 650 MG PO ×2 (03:02→21:06)
[2024-01-15] MEDS: hydrOXYzine HCL 50 MG TABLET PO ×3 (03:03→23:23)
[2024-01-15] MEDS: Nicotine 21 MG PATCH.TD24 TRANSDERMA (05:46)
--- NOTE | 2024-01-15 05:49 | PC.NURSE ---
Patient up and out of bed at 0540 asking for her 0900 Nicotine patch. This abstract writer explained patch is not due until at least 0800. Patient became agitated and stated I was told I could have the effing patch after 0500 if I was awake. This abstract writer explained to patient that she would be given the patch and provider would be notified to put in an order to dispense patch early, at patient request.
--- NOTE | 2024-01-15 05:54 | PC.NURSE ---
Patient said she would like to have Colace ordered. Will pass on to next shift.
[2024-01-15 07:48] VITALS: BP 122/58; PULSE 107; RESP 16; TEMP 36.4; O2SAT 98
[2024-01-15] MEDS: Lidocaine 4 % Patch ADH..PATCH 1 PATCH TRANSDERMA (08:32)
[2024-01-15] MEDS: clonazePAM 1 MG TABLET PO ×3 (08:32→20:25)
[2024-01-15] MEDS: chlorproMAZINE HCl 25 MG TABLET 75 MG PO ×2 (13:01→18:16)
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
[2024-01-15 20:00] VITALS: BP 106/52; PULSE 96; RESP 16; TEMP 36.6; O2SAT 98
[2024-01-15 21:40] VITALS: BP 125/68
[2024-01-15] MEDS: Prazosin HCL 1 MG CAPSULE 6 MG PO (21:40)
[2024-01-15] MEDS: Mirtazapine 30 MG TABLET PO (21:41)
[2024-01-15] MEDS: chlorproMAZINE HCl 100 MG TABLET 200 MG PO (21:41)
[2024-01-15] MEDS: Zolpidem Tartrate 5 MG TABLET 10 MG PO (21:41)
[2024-01-16] MEDS: Acetaminophen 325 MG TABLET 650 MG PO ×3 (05:15→18:42)
[2024-01-16] MEDS: chlorproMAZINE HCl 25 MG TABLET 75 MG PO (05:23)
[2024-01-16] MEDS: Lidocaine 4 % Patch ADH..PATCH 1 PATCH TRANSDERMA (09:15)
[2024-01-16] MEDS: clonazePAM 1 MG TABLET PO ×3 (09:15→22:16)
[2024-01-16] MEDS: Nicotine 21 MG PATCH.TD24 TRANSDERMA (09:32)
[2024-01-16] MEDS: chlorproMAZINE HCl 100 MG TABLET PO (11:55)
[2024-01-16 13:50] VITALS: BP 131/56; PULSE 114; RESP 14; TEMP 36.8; O2SAT 96
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
[2024-01-16] MEDS: Throat Lozenge, Medicated LOZENGE 1 LOZENGE MUCOUS MEM (14:18)
[2024-01-16] MEDS: Milk of Magnesia 30 ML ORAL.SUSP PO (17:47)
[2024-01-16 22:00] VITALS: PULSE 99; RESP 16; TEMP 36.8; O2SAT 96
[2024-01-16 22:15] VITALS: BP 119/71
[2024-01-16] MEDS: chlorproMAZINE HCl 100 MG TABLET 300 MG PO (22:15)
[2024-01-16] MEDS: Prazosin HCL 1 MG CAPSULE 7 MG PO (22:15)
[2024-01-16] MEDS: Zolpidem Tartrate 5 MG TABLET 10 MG PO (22:16)
[2024-01-16] MEDS: hydrOXYzine HCL 50 MG TABLET PO (22:16)
[2024-01-16] MEDS: Mirtazapine 15 MG TABLET PO (22:16)
[2024-01-17] MEDS: chlorproMAZINE HCl 100 MG TABLET PO ×2 (02:29→17:46)
[2024-01-17] MEDS: Nicotine 21 MG PATCH.TD24 TRANSDERMA (07:11)
[2024-01-17 08:00] VITALS: BP 126/60; PULSE 100; RESP 16; TEMP 36.5; O2SAT 97
[2024-01-17] MEDS: clonazePAM 1 MG TABLET PO ×3 (09:10→22:03)
[2024-01-17] MEDS: Acetaminophen 325 MG TABLET 650 MG PO (09:32)
[2024-01-17] MEDS: Milk of Magnesia 30 ML ORAL.SUSP PO (09:32)
[2024-01-17] MEDS: Lidocaine 4 % Patch ADH..PATCH 1 PATCH TRANSDERMA (09:32)
[2024-01-17] MEDS: polyethylene glycoL 3350 17 GM POWD.PACK PO (14:46)
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
[2024-01-17] MEDS: hydrOXYzine HCL 50 MG TABLET PO (17:46)
[2024-01-17 20:00] VITALS: BP 99/52; PULSE 109; RESP 17; TEMP 36.5; O2SAT 96
[2024-01-17 22:01] VITALS: BP 102/62
[2024-01-17] MEDS: Sennosides/Docusate Sodium TABLET 2 TAB PO (22:01)
[2024-01-17] MEDS: Prazosin HCL 1 MG CAPSULE 8 MG PO (22:01)
[2024-01-17] MEDS: chlorproMAZINE HCl 100 MG TABLET 200 MG PO (22:01)
[2024-01-17] MEDS: Mirtazapine 15 MG TABLET PO (22:04)
[2024-01-17] MEDS: Zolpidem Tartrate 5 MG TABLET 10 MG PO (22:04)
[2024-01-18] MEDS: polyethylene glycoL 3350 17 GM POWD.PACK PO ×2 (04:35→10:22)
[2024-01-18] MEDS: Milk of Magnesia 30 ML ORAL.SUSP PO (05:35)
[2024-01-18] MEDS: Nicotine 21 MG PATCH.TD24 TRANSDERMA (05:35)
[2024-01-18 07:56] VITALS: BP 123/59; PULSE 99; RESP 16; TEMP 36.7; O2SAT 96
[2024-01-18] MEDS: hydrOXYzine HCL 50 MG TABLET PO (09:24)
[2024-01-18] MEDS: clonazePAM 1 MG TABLET PO ×3 (09:31→21:01)
[2024-01-18] MEDS: Lidocaine 4 % Patch ADH..PATCH 1 PATCH TRANSDERMA (10:22)
[2024-01-18] MEDS: Sodium Phosphate,Mono-Dibasic 133 ML ENEMA PR (13:28)
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
[2024-01-18] MEDS: chlorproMAZINE HCl 100 MG TABLET PO ×2 (14:03→18:03)
[2024-01-18] MEDS: Acetaminophen 325 MG TABLET 650 MG PO (14:03)
[2024-01-18] MEDS: Magnesium Hydrox/Alum Hydrox 30 ML ORAL.SUSP PO (18:05)
[2024-01-18 20:53] VITALS: BP 120/58; PULSE 98; RESP 18; TEMP 36.5; O2SAT 97
[2024-01-18] MEDS: chlorproMAZINE HCl 100 MG TABLET 200 MG PO (21:00)
[2024-01-18] MEDS: Prazosin HCL 1 MG CAPSULE 9 MG PO (21:00)
[2024-01-18] MEDS: Zolpidem Tartrate 5 MG TABLET 10 MG PO (21:01)
[2024-01-18] MEDS: Mirtazapine 15 MG TABLET PO (21:01)
[2024-01-18] MEDS: Sennosides/Docusate Sodium TABLET 2 TAB PO (21:01)
[2024-01-19 07:00] VITALS: BMI 27.2
[2024-01-19 08:00] VITALS: BP 122/65; PULSE 113; RESP 16; TEMP 36.6; O2SAT 97
[2024-01-19] MEDS: Nicotine 21 MG PATCH.TD24 TRANSDERMA (08:21)
[2024-01-19] MEDS: clonazePAM 1 MG TABLET PO ×3 (08:23→20:24)
[2024-01-19] MEDS: Lidocaine 4 % Patch ADH..PATCH 1 PATCH TRANSDERMA (10:22)
[2024-01-19] MEDS: polyethylene glycoL 3350 17 GM POWD.PACK PO (10:25)
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
[2024-01-19 19:35] VITALS: BP 129/63; PULSE 111; RESP 18; TEMP 36.5; O2SAT 98
[2024-01-19] MEDS: Sennosides/Docusate Sodium TABLET 2 TAB PO (20:23)
[2024-01-19] MEDS: Zolpidem Tartrate 5 MG TABLET 10 MG PO (20:23)
[2024-01-19] MEDS: Mirtazapine 15 MG TABLET PO (20:23)
[2024-01-19] MEDS: Prazosin HCL 1 MG CAPSULE 4 MG PO (20:24)
[2024-01-19] MEDS: chlorproMAZINE HCl 25 MG TABLET 150 MG PO (20:24)
[2024-01-19] MEDS: Prazosin HCL 5 MG CAPSULE PO (20:24)
[2024-01-19] MEDS: Acetaminophen 325 MG TABLET 650 MG PO (20:24)
[2024-01-20] MEDS: Nicotine 21 MG PATCH.TD24 TRANSDERMA (07:09)
[2024-01-20 07:10] VITALS: BP 123/56; PULSE 96; RESP 20; TEMP 36.5; O2SAT 97
[2024-01-20] MEDS: clonazePAM 1 MG TABLET PO ×3 (09:31→20:49)
[2024-01-20] MEDS: Acetaminophen 325 MG TABLET 650 MG PO (09:46)
[2024-01-20] MEDS: Lidocaine 4 % Patch ADH..PATCH 1 PATCH TRANSDERMA (10:34)
[2024-01-20] MEDS: Ibuprofen 600 MG TABLET PO ×2 (11:55→20:49)
[2024-01-20] MEDS: chlorproMAZINE HCl 100 MG TABLET PO (12:44)
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
[2024-01-20 20:00] VITALS: BP 130/75; PULSE 98; RESP 17; O2SAT 98
[2024-01-20] MEDS: chlorproMAZINE HCl 25 MG TABLET 150 MG PO (20:45)
[2024-01-20] MEDS: Zolpidem Tartrate 5 MG TABLET 10 MG PO (20:46)
[2024-01-20] MEDS: Mirtazapine 15 MG TABLET PO (20:49)
[2024-01-20 20:50] VITALS: BP 130/75
[2024-01-20] MEDS: Prazosin HCL 5 MG CAPSULE 10 MG PO (20:50)
[2024-01-21] MEDS: Ibuprofen 600 MG TABLET PO (06:48)
[2024-01-21] MEDS: Acetaminophen 325 MG TABLET 650 MG PO (06:48)
[2024-01-21 07:20] VITALS: BP 116/53; PULSE 107; RESP 18; TEMP 36.5; O2SAT 95
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
[2024-01-21] MEDS: clonazePAM 1 MG TABLET PO ×3 (08:41→20:32)
[2024-01-21] MEDS: chlorproMAZINE HCl 100 MG TABLET PO ×3 (08:43→15:56)
[2024-01-21] MEDS: Nicotine 21 MG PATCH.TD24 TRANSDERMA (08:43)
[2024-01-21 20:00] VITALS: BP 126/61; PULSE 110; RESP 18; TEMP 36.9; O2SAT 97
[2024-01-21] MEDS: Zolpidem Tartrate 5 MG TABLET 10 MG PO (20:31)
[2024-01-21] MEDS: chlorproMAZINE HCl 25 MG TABLET 150 MG PO (20:32)
[2024-01-21] MEDS: Prazosin HCL 5 MG CAPSULE 10 MG PO (20:32)
[2024-01-21] MEDS: Mirtazapine 15 MG TABLET PO (20:32)
[2024-01-21] MEDS: OXcarbazepine 150 MG TABLET PO (20:32)
[2024-01-22] MEDS: Nicotine 21 MG PATCH.TD24 TRANSDERMA (06:56)
[2024-01-22] MEDS: Ibuprofen 600 MG TABLET PO (06:56)
[2024-01-22 07:10] VITALS: BP 115/56; PULSE 108; RESP 14; TEMP 36.4; O2SAT 96
[2024-01-22] MEDS: clonazePAM 1 MG TABLET PO ×3 (09:01→20:30)
[2024-01-22] MEDS: OXcarbazepine 150 MG TABLET PO ×2 (09:01→20:30)
[2024-01-22] MEDS: Acetaminophen 325 MG TABLET 650 MG PO (09:04)
[2024-01-22] MEDS: chlorproMAZINE HCl 100 MG TABLET PO ×2 (11:07→15:20)
[2024-01-22 20:26] VITALS: BP 129/56; PULSE 103; RESP 18; TEMP 36.3; O2SAT 96
[2024-01-22] MEDS: Prazosin HCL 5 MG CAPSULE 10 MG PO (20:29)
[2024-01-22] MEDS: Zolpidem Tartrate 5 MG TABLET 10 MG PO (20:30)
[2024-01-22] MEDS: Mirtazapine 15 MG TABLET PO (20:30)
[2024-01-22] MEDS: chlorproMAZINE HCl 25 MG TABLET 150 MG PO (20:30)
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
[2024-01-23 08:04] VITALS: BP 112/71; PULSE 113; RESP 18; TEMP 36.7; O2SAT 97
[2024-01-23] MEDS: clonazePAM 1 MG TABLET PO ×3 (08:13→20:17)
[2024-01-23] MEDS: OXcarbazepine 150 MG TABLET PO ×2 (08:13→12:09)
[2024-01-23] MEDS: Nicotine 21 MG PATCH.TD24 TRANSDERMA (08:13)
[2024-01-23] MEDS: chlorproMAZINE HCl 100 MG TABLET PO ×3 (09:49→21:38)
[2024-01-23] MEDS: OLANZapine ODT 10 MG TAB.RAPDIS TRANSLINGU (12:09)
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
[2024-01-23 19:59] VITALS: BP 124/70; PULSE 107; RESP 18; TEMP 37; O2SAT 95
[2024-01-23] MEDS: Zolpidem Tartrate 5 MG TABLET 10 MG PO (20:17)
[2024-01-23] MEDS: OXcarbazepine 300 MG TABLET PO (20:17)
[2024-01-23] MEDS: Mirtazapine 15 MG TABLET PO (20:17)
[2024-01-23] MEDS: Prazosin HCL 5 MG CAPSULE 10 MG PO (20:17)
[2024-01-23] MEDS: chlorproMAZINE HCl 25 MG TABLET 150 MG PO (20:17)
[2024-01-24] MEDS: Nicotine 21 MG PATCH.TD24 TRANSDERMA (05:10)
[2024-01-24] MEDS: Ibuprofen 600 MG TABLET PO (05:11)
[2024-01-24] MEDS: chlorproMAZINE HCl 100 MG TABLET PO (07:05)
[2024-01-24 07:40] VITALS: BP 123/59; PULSE 96; RESP 16; TEMP 36.7; O2SAT 97
[2024-01-24] MEDS: clonazePAM 1 MG TABLET PO (08:32)
[2024-01-24] MEDS: OXcarbazepine 300 MG TABLET PO (08:32)
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
== END 2024-01-24 12:43 | disposition home or self-care (01) | DRG 882 ==
LOC: HO.ED 01-09 08:30 → HO.PADLT16 01-09 14:27
PROVIDERS: Registered Nurse Emergency; Admitting Provider Psychiatry & Neurology Psychiatry; Emergency Provider Emergency Medicine Emergency Medical Services; PCP Internal Medicine; Visit Provider Psychiatry & Neurology Psychiatry
DX: F43.12 Post-traumatic stress disorder, chronic (principal); R45.851 Suicidal ideations; F17.210 Nicotine dependence, cigarettes, uncomplicated; Z71.6 Tobacco abuse counseling; R45.850 Homicidal ideations; K59.00 Constipation, unspecified; Z91.51 Personal history of suicidal behavior; Z63.4 Disappearance and death of family member; Z79.899 Other long term (current) drug therapy
CPT/HCPCS: 36415; 70486; 80053; 80061; 80143; 80179; 80307; 81001; 82607; 82746; 83036; 84439; 84443; 85025; 87086; 93005; 99285; S9485

== ENCOUNTER → 2024-01-09 08:51 | Outpatient (BNV) | payer MEDICARE, SELFPAY | PROVIDERS: Emergency Provider Emergency Medicine Emergency Medical Services; PCP Internal Medicine; Visit Provider Internal Medicine | DX: R45.851 Suicidal ideations (principal) | CPT/HCPCS: 93010 ==

== ENCOUNTER → 2024-01-09 14:08 | Outpatient (BNV) | payer MEDICARE, SELFPAY | PROVIDERS: Admitting Provider Psychiatry & Neurology Psychiatry; Emergency Provider Emergency Medicine Emergency Medical Services; PCP Internal Medicine; Visit Provider Psychiatry & Neurology Psychiatry | DX: F43.12 Post-traumatic stress disorder, chronic (principal); R45.851 Suicidal ideations; R45.850 Homicidal ideations | CPT/HCPCS: 99232 ==

== ENCOUNTER → 2024-01-09 14:08 | Outpatient (BNV) | payer MEDICARE, SELFPAY | PROVIDERS: Admitting Provider Psychiatry & Neurology Psychiatry; Emergency Provider Emergency Medicine Emergency Medical Services; PCP Internal Medicine; Visit Provider Psychiatry & Neurology Psychiatry | DX: F43.12 Post-traumatic stress disorder, chronic (principal); R45.851 Suicidal ideations; R45.850 Homicidal ideations | CPT/HCPCS: 90792; 99232; 99239 ==

== ENCOUNTER 2024-02-20 10:05 | Inpatient (IN) | payer MEDICARE, SELFPAY ==
--- NOTE | 2024-02-20 10:13 | PC.NURSE ---
Security to bedside to loom changeover operator pt. and to secure belongings. Pt. also on 1:1 sitter at this time.
[2024-02-20 10:16] VITALS: BP 122/70; BP 130/50; PULSE 66; PULSE 88; RESP 18; TEMP 35.6; O2SAT 100; O2SAT 99; BMI 27.5
--- NOTE | 2024-02-20 10:29 | PC.NURSE ---
Pt. states that she wants to kill herself (with no plan) and endorses of feeling HI (HI only directed to whomever killed her son). Pt. remains on a 1:1 sitter at this time.
[2024-02-20 10:30] VITALS: BP 130/50; PULSE 88; RESP 18; TEMP 35.6; O2SAT 100
[2024-02-20] MEDS: Nicotine 21 MG PATCH.TD24 TRANSDERMA (11:34)
--- NOTE | 2024-02-20 11:37 | ED.GENADULT ---
HPI - General Adult General Chief complaint: Psychiatric Symptoms Stated complaint: SI/HI W/NO SPECIFIC PLAN PER EMS Time Seen by Provider: 02/20/24 11:36 Source: patient and EMS Mode of arrival: EMS Limitations: no limitations History of Present Illness ED Provider: Zeynep Del Valle PA-C HPI narrative: Patient is a 53 year old assigned female at with a history of PTSD presenting to the emergency department today with suicidal ideation. Patient states that she was seeing her therapist when she voiced that she was suicidal. Patient states that she has felt more depressed after her son was murdered a few months ago. Patient denies any dizziness, lightheadedness, abdominal pain, nausea, vomiting, fever, chills, blurry vision, double vision, loss of vision, chest pain, difficulty breathing, shortness of breath, back pain, night sweats, pain with urination, increased urinary frequency, increased urinary urgency, blood in her urine or stool, syncope or a near syncopal episode, recent trauma or falls, bowel incontinence, bladder incontinence, or any other complaints at this time. Relieving factors: none Exacerbating factors: none Associated symptoms: denies other symptoms Treatments prior to arrival: none Related Data Home Medications ?Medication ?Instructions ?Recorded ?Confirmed mupirocin 2 % topical ointment 1 appl topical TID PRN Open Sores 02/20/24 02/20/24 naproxen 500 mg tablet 500 mg PO BID 02/20/24 02/20/24 chlorpromazine 100 mg tablet 100 mg PO TID PRN Agitation 02/21/24 02/21/24 chlorpromazine 100 mg tablet 150 mg PO BEDTIME 02/21/24 02/21/24 Previous Rx's ?Medication ?Instructions ?Recorded clonazepam 1 mg tablet 1 mg PO TID 14 days #42 tabs 01/24/24 mirtazapine 15 mg tablet 15 mg PO BEDTIME insomnia 30 days 01/24/24 #30 tabs nicotine 21 mg/24 hr daily 21 mg transdermal DAILY PRN 01/24/24 transdermal patch nicotine craving 28 days #28 ea oxcarbazepine 300 mg tablet 300 mg PO BID 30 days #60 tabs 01/24/24 prazosin 5 mg capsule 10 mg (2 x 5 mg) PO BEDTIME 30 01/24/24 days #60 caps zolpidem 10 mg tablet 10 mg PO BEDTIME 14 days #14 tabs 01/24/24 Allergies Allergy/AdvReac Type Severity Reaction Status Date / Time codeine [CODEINE] Allergy Unknown HIVES Verified 02/20/24 10:28 meperidine [From DEMEROL] Allergy Unknown HIVES Verified 02/20/24 10:28 Review of Systems Constitutional: Constitutional: Reports no additional constitutional complaints, Denies chills, Denies fever(s) and Denies night sweats Eyes: Eyes: Reports no additional eye complaints, Denies blurry vision, Denies change in vision, Denies diplopia, Denies eye discharge, Denies loss of vision and Denies eye pain ENT: Denies dizziness Cardiovascular: Cardiovascular: Reports no additional cardiovascular complaints, Denies chest pain, Denies lightheadedness, Denies Loss of Consciousness and Denies dyspnea Respiratory: Respiratory: Reports no additional respiratory complaints and Denies dyspnea Gastrointestinal: Gastrointestinal: Reports no additional gastrointestinal complaints, Denies abdominal pain, Denies melena, Denies hematochezia, Denies change in bowel habits and Denies change in stool character Genitourinary: Genitourinary: Denies hematuria, Denies urinary frequency, Denies dysuria, Denies urinary incontinence, Denies urinary hesitancy and Denies urinary urgency Musculoskeletal: Musculoskeletal: Reports no additional musculoskeletal complaints, Denies numbness and Denies tingling Neurologic: Denies dizziness, Denies loss of vision, Denies numbness and Denies tingling Psychiatric: Psychiatric: Denies homicidal ideation and Reports suicidal ideation Endocrine: Endocrine: Reports no additional endocrine complaints Hematologic/Lymphatic: Hematologic/Lymphatic: Reports no additional hematologic/lymphatic complaints Allergic/Immunologic: Allergic/Immunologic: Reports no additional allergic/immunologic complaints PMFSH Past Medical History Attestation statement: The following information was validated with the patient. Source: old records reviewed and nursing notes reviewed Social History Social History Household Members: Family Housing: Apartment Do you presently have visiting nurse or other home services: No Patient Tobacco Use Status: Current everyday Tobacco user Tobacco use type: Cigarette Smoked in Last 30 Days: Yes e-Cigarette/Vaping Use: Never Used Second Hand Smoke Exposure: Yes Use of substances other than those prescribed or required for medical reasons: Yes Substance Use Type: Marijuana Substance Use Frequency: Daily Advance Directives: No Advance Directives Information Provided: Yes Do you have a plan to hurt others: Vague Patient : No service: No Sexual orientation: Don't Know Physical Exam ED Vital Signs: Vital Signs - 24 hr 02/20/24 20:45 02/20/24 20:45 Respiratory Rate 18 Blood Pressure 107/56 L 107/56 L Oxygen Delivery Method Room Air BMI result Body Mass Index 27.5 Const General: cooperative, no acute distress, alert and awake Nutritional Appearance: well nourished Orientation/consciousness: patient oriented x3 Limitations: no limitations HENMT Head: Yes normal to inspection and Yes atraumatic Ears: hearing grossly normal bilaterally and external ears normal General nose exam: Normal external nose present, no nasal discharge noted and no epistaxis Face and sinus: Yes normal facial exam, No abrasion and No laceration Mouth: Normal oral and palatal mucosa present, no drooling and no muffled voice Eyes General: appearance normal, both eyes and all related structures Periorbital: periorbital findings normal Eyelids: Yes eyelids normal Conjunctivae: conjunctivae normal Pupils: Equal, round and reactive pupils present EOM: EOMs intact bilaterally Neck Neck: Yes normal visual inspection, Yes full ROM and Yes no lymphadenopathy Chest Chest palpation & inspection: normal inspection of the chest Resp Effort & Inspection: normal respiratory effort and able to speak in complete sentences GI Inspection: Yes normal to inspection Neuro General: patient oriented x3 and moves all extremities Cranial nerves: Yes Equal, round and reactive pupils present Cognition (Neuro): normal cognition Extrem General: Yes normal to inspection, Yes full ROM and Yes capillary refill normal Psych Appearance: grossly normal Mental Status: mental status grossly normal Affect: Sad affect present Attitude: Guarded attititude/behavior present Thought content: Suicidality present Course Reevaluation(s) Reevaluation #1: The patient has been accepted for admission to our psychiatric inpatient unit. The patient has been stable in the emergency department. The patient has been on physician observation. This will be ended when the patient leaves for the inpatient psychiatric unit. Medications Administered Generic Name Dose Route Start Last Admin Trade Name Freq PRN Reason Stop Dose Admin Chlorpromazine HCl 100 mg 02/20/24 15:30 02/20/24 15:40 Chlorpromazine Hcl 100 Mg Tablet PO 100 mg TID PRN Administration AGITATION Chlorpromazine HCl 150 mg 02/20/24 21:00 02/20/24 20:48 Chlorpromazine Hcl 100 Mg Tablet PO 150 mg BEDTIME LOUISE Administration Clonazepam 1 mg 02/20/24 15:30 02/21/24 08:36 Clonazepam 1 Mg Tablet PO 1 mg TID LOUISE Administration Mirtazapine 15 mg 02/20/24 21:00 02/20/24 20:47 Mirtazapine 15 Mg Tablet PO 15 mg BEDTIME LOUISE Administration Naproxen 500 mg 02/20/24 21:00 02/21/24 09:13 Naproxen 500 Mg Tablet PO 500 mg BID LOUISE Administration Nicotine 21 mg 02/20/24 15:22 02/21/24 08:36 Nicotine 21 Mg Patch.Td24 TRANSDERMA 21 mg DAILY PRN Administration nicotine craving Oxcarbazepine 300 mg 02/20/24 21:00 02/21/24 08:36 Oxcarbazepine 300 Mg Tablet PO 300 mg BID LOUISE Administration Prazosin HCl 10 mg 02/20/24 21:00 02/20/24 20:45 Prazosin Hcl 5 Mg Capsule PO Not Given BEDTIME LOUISE Protocol Zolpidem Tartrate 10 mg 02/20/24 21:00 02/20/24 20:48 Zolpidem Tartrate 5 Mg Tablet PO 10 mg BEDTIME LOUISE Administration Discontinued Medications Generic Name Dose Route Start Last Admin Trade Name Freq PRN Reason Stop Dose Admin Lorazepam 1 mg 02/20/24 13:56 02/20/24 14:12 Lorazepam 1 Mg Tablet PO 02/20/24 13:57 1 mg ONCE ONE Administration Lorazepam 1 mg 02/21/24 12:49 02/21/24 12:58 Lorazepam 1 Mg Tablet PO 02/21/24 12:50 1 mg ONCE ONE Administration Nicotine 21 mg 02/20/24 11:29 02/20/24 11:34 Nicotine 21 Mg Patch.Td24 TRANSDERMA 02/20/24 11:30 21 mg ONCE ONE Administration Medical Decision Making Medical Decision Making [facility] Narrative: Patient is a 53 year old assigned female at with a history of PTSD presenting to the emergency department today with suicidal ideation. Patient's physical exam was as noted in the physical exam portion of this note. Patient's blood work was unremarkable. Patient's urine showed no acute process. I explained my physical exam findings as well as all test results to the patient. I answered all questions asked by the patient. Patient was evaluated by the CARE team who recommended inpatient level of psychiatric care. Differential Diagnosis Differential Diagnoses: The differential diagnosis associated with the presentation includes Suicidal ideation Depression Admission/Observation Consideration of admission/observation: Escalation of care including admission/observation considered Patient will either be admitted here for inpatient of psychiatric care or transferred to an appropriate inpatient psychiatric facility. Consult Healthcare Provider Management of the patient was discussed with: Behavioral Health Provider (spoke with the CARE team as noted in the MDM Rationale portion of this note.) Lab Data [facility] Lab Attestation statement: I reviewed the patient's lab results. My interpretation of these results are in the MDM Rationale portion of this note. 02/20/24 12:04 02/20/24 12:04 Labs: Lab Results 02/20/24 02/20/24 Range/Units 12:04 13:08 WBC 8.0 (4.8-10.8) X10*3/uL RBC 4.71 (4.20-5.50) X10*6/uL Hgb 14.2 (12.0-16.0) g/dl Hct 41.4 (37.0-47.0) % MCV 87.9 (80.0-98.0) fL MCH 30.1 (27.0-33.0) pg MCHC 34.3 (31.0-35.0) g/dl RDW 13.2 (11.0-16.0) % Plt Count 231 (160-400) X10*3/uL MPV 10.7 (9.4-12.3) fL Immature Gran % (Auto) 0.3 (0.0-0.4) % Neut % (Auto) 56.9 (45-73) % Lymph % (Auto) 33.5 (20-40) % [place] % (Auto) 6.7 (2-11) % Eos % (Auto) 2.3 (0-4) % Baso % (Auto) 0.3 (0-2) % Lymph # (Auto) 2.7 (1.2-4.9) X10*3/uL [place] # (Auto) 0.5 (0.1-1.2) X10*3/uL Eos # (Auto) 0.2 (0.0-0.4) X10*3/uL Baso # (Auto) 0.0 (0.0-0.2) X10*3/uL Abs Immat Gran (auto) 0.02 (0.00-0.03) X10*3/uL Absolute Neuts (auto) 4.5 (2.0-8.3) x10*3/uL Absolute Nucleated RBC 0.000 (0.0-0.012) X10*3/uL Nucleated RBC % (auto) 0.0 (0.0-0.2) /100WBC Smear Tech's Comments VERIFIED Sodium 139 (135-145) mmol/L Potassium 4.7 (3.3-5.1) mmol/L Chloride 104 (96-108) mmol/L Carbon Dioxide 28 (22-29) mmol/L Anion Gap 12 (12-20) BUN 8 L (9-16) mg/dL Creatinine 0.75 (0.5-1.4) mg/dL Estim Creat Clear Calc 83.7 Estimated GFR > 60 Random Glucose 112 (60-115) mg/dL Calcium 9.8 D (8.4-10.2) mg/dL Total Bilirubin 0.3 (0.0-1.0) mg/dL AST 17 (5-31) U/L ALT 12 (0-31) U/L Alkaline Phosphatase 95 (39-117) U/L Total Protein 7.7 (6.5-8.0) g/dL Albumin 4.4 (3.5-5.0) g/dL Beta HCG, Quant 3 mIU/mL Urine Color Yellow Urine Appearance Clear Urine pH 6.5 (5.0-9.0) Ur Specific [place] <= 1.005 (1.005-1.025) Urine Protein Negative (Neg-Trace) mg/dL Urine Glucose (UA) Negative (Negative) mg/dL Urine Ketones Negative (Negative) mg/dL Urine Blood Negative (Negative) Urine Nitrite Negative (Negative) Ur Leukocyte Esterase Negative (Negative) Urine Opiates Screen Not Detected (Not Detect) Ur Buprenorphine Scrn Not Detected (Not Detect) ng/mL Ur Oxycodone Screen Not Detected (Not Detect) ng/mL Urine Methadone Screen Not Detected (Not Detect) ng/mL Urine Fentanyl Screen Not Detected (Not Detect) Ur Barbiturates Screen Not Detected (Not Detect) Ur Phencyclidine Scrn Not Detected (Not Detect) Ur Amphetamines Screen Not Detected (Not Detect) U Benzodiazepines Scrn Not Detected (Not Detect) Urine Cocaine Screen Not Detected (Not Detect) U Marijuana (THC) Screen POSITIVE H (Not Detect) Independent Historian Clinical information obtained from an independent historian. History obtained from or confirmed by: EMS (EMS provided additional history and confirmed the history provided by the patient.) Critical Care Time Critical Care Time Critical Care Time: Yes Total Critical Care Time: 34 Attestation: I spent 34 minutes of Critical Care Time with this patient. This does not include time spent on separately reported billable procedures. Discharge Plan Discharge Clinical Impression: Suicidal ideation Patient Disposition: Admitted As Inpatient Interventions: [place]-Suicide Risk Severity Scale Last Done: 02/20/24 10:34
[2024-02-20 12:14] LABS: Basophils Percent Auto 0.3 % (0-2); Eosinophils Absolute Auto 0.2 X10*3/uL (0.0-0.4); Eosinophils Percent Auto 2.3 % (0-4); Hematocrit 41.4 % (37.0-47.0); Hemoglobin 14.2 g/dl (12.0-16.0); Imm Gran Abs Auto 0.02 X10*3/uL (0.00-0.03); Imm Gran Pct Auto 0.3 % (0.0-0.4); Lymphocytes Absolute Auto 2.7 X10*3/uL (1.2-4.9); Lymphocytes Percent Auto 33.5 % (20-40); MANUAL DIFF FLAG SCAN; Mean Corpuscular HGB Conc 34.3 g/dl (31.0-35.0); Mean Corpuscular Hemoglobin 30.1 pg (27.0-33.0); Mean Corpuscular Volume 87.9 fL (80.0-98.0); Mean Platelet Volume 10.7 fL (9.4-12.3); Monocytes Absolute Auto 0.5 X10*3/uL (0.1-1.2); Monocytes Percent Auto 6.7 % (2-11); Neutrophils Absolute Auto 4.5 x10*3/uL (2.0-8.3); Neutrophils Percent Auto 56.9 % (45-73); PLT CLUMP 1; Red Blood Count 4.71 X10*6/uL (4.20-5.50); Red Cell Distribution Width 13.2 % (11.0-16.0); SCAN SMEAR FLAG 1
[2024-02-20 12:26] LABS: Alanine Aminotransferase 12 U/L (0-31); Albumin Level 4.4 g/dL (3.5-5.0); Alkaline Phosphatase 95 U/L (39-117); Anion Gap 12 (12-20); Aspartate Amino Transferase 17 U/L (5-31); Bilirubin Total 0.3 mg/dL (0.0-1.0); Blood Urea Nitrogen 8 mg/dL (9-16); Calcium 9.8 mg/dL (8.4-10.2); Carbon Dioxide 28 mmol/L (22-29); Chloride 104 mmol/L (96-108); Creatinine Clr Calc Pharmacy 83.7; Estimated Glomerular Filt Rate > 60; Glucose Random 112 mg/dL (60-115); Potassium 4.7 mmol/L (3.3-5.1); Sodium 139 mmol/L (135-145); Total Protein 7.7 g/dL (6.5-8.0)
[2024-02-20 12:29] LABS: HCG Quantitative 3 mIU/mL
[2024-02-20 12:31] VITALS: RESP 20; TEMP 36.1; O2SAT 96
[2024-02-20 12:46] LABS: Platelet Count 231 X10*3/uL (160-400); SLIDE REVIEW VERIFIED
--- NOTE | 2024-02-20 13:00 | PC.NURSE ---
Pt. remains on 11 sitter at this time.
[2024-02-20 13:17] LABS: Appearance Urine Clear; Color Urine Yellow; Glucose Urine UA Negative (Negative); Leukocyte Esterase Urine Negative (Negative); Nitrite Urine Negative (Negative); PH 6.5 (5.0-9.0); Specific Gravity - Urine <= 1.005 (1.005-1.025); Urine Blood Negative (Negative); Urine Ketones Negative (Negative); Urine Protein Negative (Neg-Trace)
[2024-02-20 13:26] LABS: Amphetamine Screen Urine Not Detected (Not Detect); Barbiturates, Urine Not Detected (Not Detect); Benzodiazepines Screen Urine Not Detected (Not Detect); Buprenorphine Scr Not Detected (Not Detect); Cannabinoid Screen Urine POSITIVE (Not Detect); Cocaine Screen Urine Not Detected (Not Detect); Fentanyl, urine Not Detected (Not Detect); Methadone Screen, Urine Not Detected (Not Detect); Opiate Screen Urine Not Detected (Not Detect); Oxycodone Screen Urine Not Detected (Not Detect); Phencyclidine Screen Urine Not Detected (Not Detect)
--- NOTE | 2024-02-20 14:00 | PC.NURSE ---
Pt. transferred to pod to CAND[facility] Mota.
[2024-02-20] MEDS: LORazepam 1 MG TABLET PO (14:12)
--- NOTE | 2024-02-20 15:09 | MHC.CARE ---
Patient is an [facility] bedsearch.
[2024-02-20] MEDS: clonazePAM 1 MG TABLET PO ×2 (15:40→20:37)
[2024-02-20] MEDS: chlorproMAZINE HCl 100 MG TABLET PO (15:40)
[2024-02-20 20:45] VITALS: BP 107/56; RESP 18
[2024-02-20] MEDS: NaPROXEN 500 MG TABLET PO (20:47)
[2024-02-20] MEDS: Mirtazapine 15 MG TABLET PO (20:47)
[2024-02-20] MEDS: chlorproMAZINE HCl 100 MG TABLET 150 MG PO (20:48)
[2024-02-20] MEDS: Zolpidem Tartrate 5 MG TABLET 10 MG PO (20:48)
[2024-02-20] MEDS: OXcarbazepine 300 MG TABLET PO (20:49)
--- NOTE | 2024-02-20 20:52 | PC.NURSE ---
Bp 86/38 and 91/44 while laying down. While sitting it improved to 107/56. Held prazosin
--- NOTE | 2024-02-21 07:13 | PC.NURSE ---
Assumed care of patient at 0645. At this time the patient is resting quietly in their bed. No signs of distress observed.
[2024-02-21] MEDS: OXcarbazepine 300 MG TABLET PO ×2 (08:36→20:58)
[2024-02-21] MEDS: clonazePAM 1 MG TABLET PO ×3 (08:36→20:59)
[2024-02-21] MEDS: Nicotine 21 MG PATCH.TD24 TRANSDERMA (08:36)
--- NOTE | 2024-02-21 08:40 | PHA.MEDREC ---
Addendum entered by Diego Oritz RPh 02/21/24 08:46: Reviewed by [facility] Original Note: Pharmacy Consult ? Medication Reconciliation Pharmacy has reviewed the medication reconciliation done by nurse. Utilized claims and discharge packet from 01/24/24 to confirm med list
[2024-02-21] MEDS: NaPROXEN 500 MG TABLET PO ×2 (09:13→20:57)
--- NOTE | 2024-02-21 12:56 | ECG_ITS ---
Test Reason : QT EVAL Blood Pressure : / mmHG Vent. Rate : 080 BPM Atrial Rate : 080 BPM P-R Int : 196 ms QRS Dur : 098 ms QT Int : 384 ms P-R-T Axes : 069 073 063 degrees QTc Int : 442 ms Normal sinus rhythm Normal ECG When compared with ECG of 09-JAN-2024 08:51, QT has lengthened Referred By: Generic ED Physician Electronically Signed By:RACHELLE OMER
[2024-02-21] MEDS: LORazepam 1 MG TABLET PO (12:58)
[2024-02-21 13:57] VITALS: BP 126/69; PULSE 81; RESP 16; TEMP 36.4; O2SAT 98
[2024-02-21 14:18] VITALS: BMI 27.3
[2024-02-21] MEDS: Acetaminophen 325 MG TABLET 650 MG PO (16:38)
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
[2024-02-21] MEDS: Flu Vacc TS2024-25(6mos up)/PF 0.5 ML SYRINGE IM (17:29)
[2024-02-21 20:00] VITALS: BP 112/57; PULSE 80; RESP 16; TEMP 36.2; O2SAT 96
[2024-02-21] MEDS: chlorproMAZINE HCl 25 MG TABLET 150 MG PO (20:56)
[2024-02-21] MEDS: Mirtazapine 15 MG TABLET PO (20:57)
[2024-02-21] MEDS: Zolpidem Tartrate 5 MG TABLET 10 MG PO (20:58)
[2024-02-21] MEDS: Prazosin HCL 5 MG CAPSULE 10 MG PO (20:58)
[2024-02-22] MEDS: Nicotine 21 MG PATCH.TD24 TRANSDERMA (06:52)
[2024-02-22 07:39] VITALS: BP 121/56; PULSE 98; RESP 20; TEMP 36.6; O2SAT 95
[2024-02-22] MEDS: clonazePAM 1 MG TABLET PO ×3 (08:17→20:26)
[2024-02-22] MEDS: NaPROXEN 500 MG TABLET PO ×2 (08:17→20:26)
[2024-02-22] MEDS: OXcarbazepine 300 MG TABLET PO ×2 (08:18→20:24)
[2024-02-22] MEDS: Acetaminophen 325 MG TABLET 650 MG PO (08:21)
[2024-02-22] MEDS: hydrOXYzine HCL 25 MG TABLET PO (08:22)
[2024-02-22] MEDS: chlorproMAZINE HCl 100 MG TABLET PO ×2 (08:22→13:29)
[2024-02-22 13:28] VITALS: BP 112/56; PULSE 95
[2024-02-22] MEDS: cloNIDine HCL 0.1 MG TABLET PO (13:29)
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
[2024-02-22 20:00] VITALS: BP 108/52; PULSE 86; RESP 16; TEMP 36.3; O2SAT 93
[2024-02-22] MEDS: PRAZOSIN 12 MG PO (20:24)
[2024-02-22] MEDS: Zolpidem Tartrate 5 MG TABLET 10 MG PO (20:25)
[2024-02-22] MEDS: chlorproMAZINE HCl 25 MG TABLET 150 MG PO (20:26)
[2024-02-22] MEDS: Mirtazapine 30 MG TABLET PO (20:26)
[2024-02-23 03:40] VITALS: BP 110/56
[2024-02-23] MEDS: hydrOXYzine HCL 25 MG TABLET PO (03:40)
[2024-02-23] MEDS: chlorproMAZINE HCl 100 MG TABLET PO ×2 (03:40→12:52)
[2024-02-23] MEDS: cloNIDine HCL 0.1 MG TABLET PO ×2 (03:40→12:52)
[2024-02-23 07:00] VITALS: BMI 28.4
[2024-02-23] MEDS: Nicotine 21 MG PATCH.TD24 TRANSDERMA (07:22)
[2024-02-23 07:41] VITALS: BP 110/54; PULSE 104; RESP 16; TEMP 36.4; O2SAT 97
[2024-02-23] MEDS: NaPROXEN 500 MG TABLET PO ×2 (08:06→21:30)
[2024-02-23] MEDS: OXcarbazepine 300 MG TABLET PO ×2 (08:07→21:29)
[2024-02-23] MEDS: clonazePAM 1 MG TABLET PO ×3 (08:07→21:30)
[2024-02-23 12:49] VITALS: BP 119/59; PULSE 76
--- NOTE | 2024-02-23 13:42 | P.PNPSI_ITS ---
Subjective Subjective Date of Service: 02/23/24 Reason For Visit: SI/HI Interim History: some rocking. cooperative. feels thorazine and clonidine combo was helpful. up twice for nightmares overnight. reporting some lightheadedness in the mornings, declines to increase prazosin further. per staff, worsened depression, anxiety 03/08. using all PRNs. taking meds. up at 0340 for PRNs. slept 7+ hours. Mental Status Exam Mental Status Exam Narrative: adequately dressed and groomed. up and about in the milieu. cooperative. speech nml rate, amount. nml loudness, tone. nml latency. thoughts linear and logical without delusions or paranoia. affect constricted, hyper-intense, non- labile. mood anxious and depressed. no SI/SIBI/HI/AVH expressed. Diagnostics Vital Signs (24Hr): Vital Signs - 24 hr 02/22/24 20:00 02/23/24 03:40 02/23/24 07:41 Temperature 97.3 F 97.5 F Pulse Rate 86 104 H Respiratory Rate 16 16 Blood Pressure 108/52 L 110/56 L 110/54 L Pulse Oximetry 93 97 Oxygen Delivery Method Room Air Room Air 02/23/24 12:49 Temperature Pulse Rate 76 Respiratory Rate Blood Pressure 119/59 L Pulse Oximetry Oxygen Delivery Method BMI result Body Mass Index 28.4 Labs 02/20/24 12:04 02/20/24 12:04 Medications Medications Current Medications Acetaminophen (Acetaminophen 325 Mg Tablet) 650 mg PO Q6H PRN PRN Reason: Headache/Pain Mild Scale (1-3) Last Admin: 02/22/24 08:21 Dose: 650 mg Al Hydroxide/Mg Hydroxide (Magnesium Hydrox/Alum Hydrox 30 Ml Oral.Susp) 30 ml PO Q6H PRN PRN Reason: Heartburn/Nausea Benzocaine (Throat Lozenge, Medicated Lozenge) 1 lozenge MUCOUS MEM Q1H PRN PRN Reason: Sore Throat Chlorpromazine HCl (Chlorpromazine Hcl 100 Mg Tablet) 100 mg PO TID PRN PRN Reason: Agitation Last Admin: 02/23/24 12:52 Dose: 100 mg Chlorpromazine HCl (Chlorpromazine Hcl 25 Mg Tablet) 150 mg PO BEDTIME [facility] Last Admin: 09/25/24 20:26 Dose: 150 mg Clonazepam (Clonazepam 1 Mg Tablet) 1 mg PO TID [facility] Last Admin: 02/23/24 08:07 Dose: 1 mg Clonidine HCl (Clonidine Hcl 0.1 Mg Tablet) 0.1 mg PO TID PRN; Protocol PRN Reason: severe anxiety Last Admin: 02/23/24 12:52 Dose: 0.1 mg Magnesium Hydroxide (Milk Of Magnesia 30 Ml Oral.Susp) 30 ml PO DAILY PRN PRN Reason: Constipation Mirtazapine (Mirtazapine 30 Mg Tablet) 30 mg PO BEDTIME [facility] Last Admin: 02/22/24 20:26 Dose: 30 mg Mupirocin (Mupirocin 2 % Oint 22 Gm Tube) 1 appl TOPICAL TID PRN; Protocol PRN Reason: Open Sores Naproxen (Naproxen 500 Mg Tablet) 500 mg PO BID [facility] Last Admin: 02/23/24 08:06 Dose: 500 mg Nicotine (Nicotine 21 Mg Patch.Td24) 21 mg TRANSDERMA DAILY [facility] Last Admin: 02/23/24 07:22 Dose: 21 mg Nicotine Polacrilex (Nicotine Polacrilex 2 Mg Gum) 4 mg BUCCAL Q2H PRN PRN Reason: Nicotine Cravings Oxcarbazepine (Oxcarbazepine 300 Mg Tablet) 300 mg PO BID [facility] Last Admin: 02/23/24 08:07 Dose: 300 mg Prazosin HCl (Prazosin Hcl 1 Mg Capsule) 14 mg PO BEDTIME [facility]; Protocol Zolpidem Tartrate (Zolpidem Tartrate 5 Mg Tablet) 10 mg PO BEDTIME [facility] Last Admin: 02/22/24 20:25 Dose: 10 mg Allergies Allergies Allergy/AdvReac Type Severity Reaction Status Date / Time codeine [CODEINE] Allergy Unknown HIVES Verified 02/20/24 10:28 meperidine [From DEMEROL] Allergy Unknown HIVES Verified 02/20/24 10:28 Assessment & Plan Assessment & Plan (1) Chronic posttraumatic stress disorder: Status: Acute Code(s): F43.12 - Post-traumatic stress disorder, chronic (2) Major depressive episode: Status: Acute Code(s): F32.9 - Major depressive disorder, single episode, unspecified (3) Suicidal ideation: Status: Acute Code(s): R45.851 - Suicidal ideations Plan PTSD, depression 02/21: increase HS prazosin to 12 mg. increase HS remeron to 30 mg. add clonidine 0.1 mg to thorazine 100 mg PRNs. [facility] 02/22: some help from thorazine/clonidine combo. some lightheadedness, keep prazosin at 12 mg QHS. 2 nightmares, up twice in the night. continue current mgmt for now. Reason for continued inpatient stay Substantial Risk for: harm to self, harm to others, inability to function and rapid decompensation Time Spent With Patient Time: Total time managing care of this patient today _25___ minutes.
[2024-02-23 20:00] VITALS: BP 135/86; PULSE 81; RESP 14; TEMP 36.6; O2SAT 98
[2024-02-23] MEDS: chlorproMAZINE HCl 25 MG TABLET 150 MG PO (21:29)
[2024-02-23] MEDS: Zolpidem Tartrate 5 MG TABLET 10 MG PO (21:30)
[2024-02-23] MEDS: Mirtazapine 30 MG TABLET PO (21:30)
[2024-02-23 21:31] VITALS: BP 120/65
[2024-02-23] MEDS: Prazosin HCL 1 MG CAPSULE 14 MG PO (21:31)
[2024-02-24 07:51] VITALS: BP 109/56; PULSE 93; RESP 16; TEMP 36.7; O2SAT 96
[2024-02-24] MEDS: Nicotine 21 MG PATCH.TD24 TRANSDERMA (07:53)
[2024-02-24] MEDS: clonazePAM 1 MG TABLET PO ×3 (07:56→21:08)
[2024-02-24] MEDS: NaPROXEN 500 MG TABLET PO ×2 (07:56→21:05)
[2024-02-24] MEDS: OXcarbazepine 300 MG TABLET PO ×2 (07:56→21:06)
--- NOTE | 2024-02-24 14:47 | HO.PSYCHPN ---
Subjective Subjective Date of Service: 02/24/24 Reason For Visit: SI/HI Interim History: as per yesterday. reports a couple nightmares last night but having slept better. did feel a little off-kilter when she was in the [place] last [place] getting a snack. agreed to hold steady on meds for now. would like to return to [facility] sometime next week. per staff, attending groups. rocking back and forth. slept all eves, 5 hours overnight. up x3 overnight. Mental Status Exam Mental Status Exam Narrative: adequately dressed and groomed. up and about in the milieu. cooperative. speech nml rate, amount. nml loudness, tone. nml latency. thoughts linear and logical without delusions or paranoia. affect constricted, hyper-intense, non-labile. mood anxious and depressed. no SI/SIBI/HI/AVH expressed. Diagnostics Vital Signs (24Hr): Vital Signs - 24 hr 02/23/24 20:00 02/23/24 21:31 02/24/24 07:51 Temperature 97.9 F 98.0 F Pulse Rate 81 93 Respiratory Rate 14 16 Blood Pressure 135/86 120/65 109/56 L Pulse Oximetry 98 96 Oxygen Delivery Method Room Air Room Air BMI result Body Mass Index 28.4 Labs 02/20/24 12:04 02/20/24 12:04 Medications Medications Current Medications Acetaminophen (Acetaminophen 325 Mg Tablet) 650 mg PO Q6H PRN PRN Reason: Headache/Pain Mild Scale (1-3) Last Admin: 02/22/24 08:21 Dose: 650 mg Al Hydroxide/Mg Hydroxide (Magnesium Hydrox/Alum Hydrox 30 Ml Oral.Susp) 30 ml PO Q6H PRN PRN Reason: Heartburn/Nausea Benzocaine (Throat Lozenge, Medicated Lozenge) 1 lozenge MUCOUS MEM Q1H PRN PRN Reason: Sore Throat Chlorpromazine HCl (Chlorpromazine Hcl 100 Mg Tablet) 100 mg PO TID PRN PRN Reason: Agitation Last Admin: 02/23/24 12:52 Dose: 100 mg Chlorpromazine HCl (Chlorpromazine Hcl 25 Mg Tablet) 150 mg PO BEDTIME [facility] Last Admin: 02/23/24 21:29 Dose: 150 mg Clonazepam (Clonazepam 1 Mg Tablet) 1 mg PO TID [facility] Last Admin: 02/24/24 14:36 Dose: 1 mg Clonidine HCl (Clonidine Hcl 0.1 Mg Tablet) 0.1 mg PO TID PRN; Protocol PRN Reason: severe anxiety Last Admin: 02/23/24 12:52 Dose: 0.1 mg Magnesium Hydroxide (Milk Of Magnesia 30 Ml Oral.Susp) 30 ml PO DAILY PRN PRN Reason: Constipation Mirtazapine (Mirtazapine 30 Mg Tablet) 30 mg PO BEDTIME [facility] Last Admin: 02/23/24 21:30 Dose: 30 mg Mupirocin (Mupirocin 2 % Oint 22 Gm Tube) 1 appl TOPICAL TID PRN; Protocol PRN Reason: Open Sores Naproxen (Naproxen 500 Mg Tablet) 500 mg PO BID [facility] Last Admin: 02/24/24 07:56 Dose: 500 mg Nicotine (Nicotine 21 Mg Patch.Td24) 21 mg TRANSDERMA DAILY [facility] Last Admin: 02/24/24 07:53 Dose: 21 mg Nicotine Polacrilex (Nicotine Polacrilex 2 Mg Gum) 4 mg BUCCAL Q2H PRN PRN Reason: Nicotine Cravings Oxcarbazepine (Oxcarbazepine 300 Mg Tablet) 300 mg PO BID [facility] Last Admin: 02/24/24 07:56 Dose: 300 mg Prazosin HCl (Prazosin Hcl 1 Mg Capsule) 14 mg PO BEDTIME [facility]; Protocol Last Admin: 02/23/24 21:31 Dose: 14 mg Zolpidem Tartrate (Zolpidem Tartrate 5 Mg Tablet) 10 mg PO BEDTIME [facility] Last Admin: 02/23/24 21:30 Dose: 10 mg Allergies Allergies Allergy/AdvReac Type Severity Reaction Status Date / Time codeine [CODEINE] Allergy Unknown HIVES Verified 02/20/24 10:28 meperidine [From DEMEROL] Allergy Unknown HIVES Verified 02/20/24 10:28 Assessment & Plan Assessment & Plan (1) Chronic posttraumatic stress disorder: Status: Acute Code(s): F43.12 - Post-traumatic stress disorder, chronic (2) Major depressive episode: Status: Acute Code(s): F32.9 - Major depressive disorder, single episode, unspecified (3) Suicidal ideation: Status: Acute Code(s): R45.851 - Suicidal ideations Plan PTSD, depression 02/21: increase HS prazosin to 12 mg. increase HS remeron to 30 mg. add clonidine 0.1 mg to thorazine 100 mg PRNs. plan to return to [facility]. 02/22: some help from thorazine/clonidine combo. some lightheadedness, keep prazosin at 12 mg QHS. 2 nightmares, up twice in the night. continue current mgmt for now. 02/23: prazosin increased to 14 mg last night. slept better, still 2 nightmares. some unsteadiness, counseled to get up in stages and slowly. hoping to return to [facility] next week sometime. continue current mgmt. Reason for continued inpatient stay Substantial Risk for: harm to self, harm to others, inability to function and rapid decompensation Time Spent With Patient Time: Total time managing care of this patient today __25__ minutes.
[2024-02-24 20:13] VITALS: BP 123/61; PULSE 96; RESP 18; TEMP 36.8; O2SAT 96
[2024-02-24 21:06] VITALS: BP 123/61
[2024-02-24] MEDS: cloNIDine HCL 0.1 MG TABLET PO (21:06)
[2024-02-24] MEDS: Zolpidem Tartrate 5 MG TABLET 10 MG PO (21:07)
[2024-02-24] MEDS: chlorproMAZINE HCl 100 MG TABLET PO (21:07)
[2024-02-24] MEDS: chlorproMAZINE HCl 25 MG TABLET 150 MG PO (21:07)
[2024-02-24 21:08] VITALS: BP 123/61
[2024-02-24] MEDS: PRAZOSIN HCL 14 MG PO (21:08)
[2024-02-24] MEDS: Mirtazapine 30 MG TABLET PO (21:08)
[2024-02-25] MEDS: Nicotine 21 MG PATCH.TD24 TRANSDERMA (05:46)
[2024-02-25] MEDS: chlorproMAZINE HCl 100 MG TABLET PO ×3 (05:49→20:25)
[2024-02-25 05:50] VITALS: BP 111/55
[2024-02-25] MEDS: cloNIDine HCL 0.1 MG TABLET PO ×3 (05:50→20:25)
[2024-02-25 07:51] VITALS: BP 128/59; PULSE 98; RESP 16; TEMP 36.4; O2SAT 98
[2024-02-25] MEDS: NaPROXEN 500 MG TABLET PO ×2 (08:04→20:26)
[2024-02-25] MEDS: OXcarbazepine 300 MG TABLET PO ×2 (08:05→20:24)
[2024-02-25] MEDS: clonazePAM 1 MG TABLET PO ×3 (08:05→20:25)
--- NOTE | 2024-02-25 10:09 | HO.PSYCHPN ---
Subjective Subjective Date of Service: 02/25/24 Reason For Visit: SI/HI Subjective Notes: Conditional Voluntary Interim History: Reviewed with Dr. Alberto. Active on unit. Social with peers. Attending groups. Patient stated, my depression is getting better. But my anxiety still bad. I'm still having nightmares . Patient observed rocking back and forth while sitting. Per nursing patient slept 6 hours last night. Medication Compliance: Yes Side effects from medications: No Attending Groups: Yes Review of Systems Constitutional: Reports as per HPI Eyes: Reports as per HPI Reports as per HPI Cardiovascular: Reports as per HPI Respiratory: Reports as per HPI Gastrointestinal: Reports as per HPI Genitourinary: Reports as per HPI Musculoskeletal: Reports as per HPI Skin/Breast: Reports as per HPI Reports as per HPI Psychiatric: Reports as per HPI Endocrine: Reports as per HPI Hematologic/Lymphatic: Reports as per HPI Allergic/Immunologic: Reports as per HPI Mental Status Exam Mental Status Exam Narrative: Pt is alert and oriented; behavior is cooperative and calm, observed rocking back and forth; dressed in casual attire; mood is described as anxious ; eye contact appropriate; Speech is normal rate, volume and not pressured; thought process is organized. Diagnostics Vital Signs (24Hr): Vital Signs - 24 hr 02/24/24 20:13 02/24/24 21:06 02/24/24 21:08 Temperature 98.2 F Pulse Rate 96 Respiratory Rate 18 Blood Pressure 123/61 123/61 123/61 Pulse Oximetry 96 Oxygen Delivery Method Room Air 02/25/24 05:50 02/25/24 07:51 Temperature 97.6 F Pulse Rate 98 Respiratory Rate 16 Blood Pressure 111/55 L 128/59 L Pulse Oximetry 98 Oxygen Delivery Method Room Air BMI result Body Mass Index 28.4 Labs 02/20/24 12:04 02/20/24 12:04 Medications Medications Current Medications Acetaminophen (Acetaminophen 325 Mg Tablet) 650 mg PO Q6H PRN PRN Reason: Headache/Pain Mild Scale (1-3) Last Admin: 02/22/24 08:21 Dose: 650 mg Al Hydroxide/Mg Hydroxide (Magnesium Hydrox/Alum Hydrox 30 Ml Oral.Susp) 30 ml PO Q6H PRN PRN Reason: Heartburn/Nausea Benzocaine (Throat Lozenge, Medicated Lozenge) 1 lozenge MUCOUS MEM Q1H PRN PRN Reason: Sore Throat Chlorpromazine HCl (Chlorpromazine Hcl 100 Mg Tablet) 100 mg PO TID PRN PRN Reason: Agitation Last Admin: 02/25/24 05:49 Dose: 100 mg Chlorpromazine HCl (Chlorpromazine Hcl 25 Mg Tablet) 150 mg PO BEDTIME [facility] Last Admin: 02/24/24 21:07 Dose: 150 mg Clonazepam (Clonazepam 1 Mg Tablet) 1 mg PO TID [facility] Last Admin: 02/25/24 08:05 Dose: 1 mg Clonidine HCl (Clonidine Hcl 0.1 Mg Tablet) 0.1 mg PO TID PRN; Protocol PRN Reason: severe anxiety Last Admin: 02/25/24 05:50 Dose: 0.1 mg Magnesium Hydroxide (Milk Of Magnesia 30 Ml Oral.Susp) 30 ml PO DAILY PRN PRN Reason: Constipation Mirtazapine (Mirtazapine 30 Mg Tablet) 30 mg PO BEDTIME [facility] Last Admin: 02/24/24 21:08 Dose: 30 mg Mupirocin (Mupirocin 2 % Oint 22 Gm Tube) 1 appl TOPICAL TID PRN; Protocol PRN Reason: Open Sores Naproxen (Naproxen 500 Mg Tablet) 500 mg PO BID [facility] Last Admin: 02/25/24 08:04 Dose: 500 mg Nicotine (Nicotine 21 Mg Patch.Td24) 21 mg TRANSDERMA DAILY [facility] Last Admin: 02/25/24 05:46 Dose: 21 mg Nicotine Polacrilex (Nicotine Polacrilex 2 Mg Gum) 4 mg BUCCAL Q2H PRN PRN Reason: Nicotine Cravings Oxcarbazepine (Oxcarbazepine 300 Mg Tablet) 300 mg PO BID [facility] Last Admin: 02/25/24 08:05 Dose: 300 mg Prazosin HCl 10 mg/ Prazosin (HCl 4 mg) 14 mg PO BEDTIME [facility] Last Admin: 02/24/24 21:08 Dose: 14 mg Zolpidem Tartrate (Zolpidem Tartrate 5 Mg Tablet) 10 mg PO BEDTIME [facility] Last Admin: 02/24/24 21:07 Dose: 10 mg Allergies Allergies Allergy/AdvReac Type Severity Reaction Status Date / Time codeine [CODEINE] Allergy Unknown HIVES Verified 02/20/24 10:28 meperidine [From DEMEROL] Allergy Unknown HIVES Verified 02/20/24 10:28 Assessment & Plan Assessment & Plan (1) Chronic posttraumatic stress disorder: Status: Acute Code(s): F43.12 - Post-traumatic stress disorder, chronic (2) Major depressive episode: Status: Acute Code(s): F32.9 - Major depressive disorder, single episode, unspecified (3) Suicidal ideation: Status: Acute Code(s): R45.851 - Suicidal ideations Plan PTSD, depression 02/21: increase HS prazosin to 12 mg. increase HS remeron to 30 mg. add clonidine 0.1 mg to thorazine 100 mg PRNs. plan to return to [facility]. 02/22: some help from thorazine/clonidine combo. some lightheadedness, keep prazosin at 12 mg QHS. 2 nightmares, up twice in the night. continue current mgmt for now. 02/23: prazosin increased to 14 mg last night. slept better, still 2 nightmares. some unsteadiness, counseled to get up in stages and slowly. hoping to return to [facility] next week sometime. continue current mgmt. 02/24: Active on unit. Social with peers. Attending groups. Patient stated, my depression is getting better. But my anxiety still bad. I'm still having nightmares . Patient observed rocking back and forth while sitting. Per nursing patient slept 6 hours last night. Continue current treatment plan. Patient educated on: diagnosis and medication risk/benefits Reason for continued inpatient stay Substantial Risk for: med/psych decompensation Time Spent With Patient Time: Total time managing care of this patient today _20___ minutes.
[2024-02-25 16:50] VITALS: BP 116/60; PULSE 100; O2SAT 98
[2024-02-25 19:35] VITALS: BP 120/58; PULSE 96; RESP 18; TEMP 36.4; O2SAT 98
[2024-02-25] MEDS: Mirtazapine 30 MG TABLET PO (20:25)
[2024-02-25] MEDS: Zolpidem Tartrate 5 MG TABLET 10 MG PO (20:26)
[2024-02-25] MEDS: PRAZOSIN HCL 14 MG PO (20:26)
[2024-02-25] MEDS: chlorproMAZINE HCl 25 MG TABLET 150 MG PO (20:26)
[2024-02-26] MEDS: Nicotine 21 MG PATCH.TD24 TRANSDERMA (06:01)
[2024-02-26] MEDS: NaPROXEN 500 MG TABLET PO ×2 (06:19→20:28)
[2024-02-26 07:39] VITALS: BP 100/49; PULSE 87; RESP 16; TEMP 36.4; O2SAT 98
[2024-02-26] MEDS: clonazePAM 1 MG TABLET PO ×3 (08:53→20:29)
[2024-02-26] MEDS: OXcarbazepine 300 MG TABLET PO ×2 (08:54→20:29)
[2024-02-26 08:59] VITALS: BP 109/54; PULSE 93
--- NOTE | 2024-02-26 09:00 | P.PNPSI_ITS ---
Subjective Subjective Date of Service: 02/26/24 Reason For Visit: SI/HI Subjective Notes: Conditional Voluntary Interim History: Reviewed with Dr. Alberto. Active on unit. Social with peers. Attending groups. Patient stated, feeling a little better . Patient continues to rock back and forth while sitting. Per nursing, patient slept 7 hours last night. denies SI/HI/VH/AH. Medication Compliance: Yes Side effects from medications: No Attending Groups: Yes Review of Systems Constitutional: Reports as per HPI Eyes: Reports as per HPI Reports as per HPI Cardiovascular: Reports as per HPI Respiratory: Reports as per HPI Gastrointestinal: Reports as per HPI Musculoskeletal: Reports as per HPI Skin/Breast: Reports as per HPI Reports as per HPI Psychiatric: Reports as per HPI Endocrine: Reports as per HPI Hematologic/Lymphatic: Reports as per HPI Allergic/Immunologic: Reports as per HPI Mental Status Exam Mental Status Exam Narrative: Pt is alert and oriented; behavior is cooperative and calm, observed rocking back and forth; dressed in casual attire; mood is described as anxious ; eye contact appropriate; Speech is normal rate, volume and not pressured; thought process is organized. denies SI/HI/VH/AH. Diagnostics Vital Signs (24Hr): Vital Signs - 24 hr 02/25/24 16:50 02/25/24 19:35 02/26/24 07:39 Temperature 97.6 F 97.5 F Pulse Rate 100 96 87 Respiratory Rate 18 16 Blood Pressure 116/60 120/58 L 100/49 L Pulse Oximetry 98 98 98 Oxygen Delivery Method Room Air Room Air Room Air 02/26/24 08:59 Temperature Pulse Rate 93 Respiratory Rate Blood Pressure 109/54 L Pulse Oximetry Oxygen Delivery Method BMI result Body Mass Index 28.4 Labs 02/20/24 12:04 02/20/24 12:04 Medications Medications Current Medications Acetaminophen (Acetaminophen 325 Mg Tablet) 650 mg PO Q6H PRN PRN Reason: Headache/Pain Mild Scale (1-3) Last Admin: 02/22/24 08:21 Dose: 650 mg Al Hydroxide/Mg Hydroxide (Magnesium Hydrox/Alum Hydrox 30 Ml Oral.Susp) 30 ml PO Q6H PRN PRN Reason: Heartburn/Nausea Benzocaine (Throat Lozenge, Medicated Lozenge) 1 lozenge MUCOUS MEM Q1H PRN PRN Reason: Sore Throat Chlorpromazine HCl (Chlorpromazine Hcl 100 Mg Tablet) 100 mg PO TID PRN PRN Reason: Agitation Last Admin: 02/25/24 20:25 Dose: 100 mg Chlorpromazine HCl (Chlorpromazine Hcl 25 Mg Tablet) 150 mg PO BEDTIME [facility] Last Admin: 02/25/24 20:26 Dose: 150 mg Clonazepam (Clonazepam 1 Mg Tablet) 1 mg PO TID [facility] Last Admin: 02/26/24 08:53 Dose: 1 mg Clonidine HCl (Clonidine Hcl 0.1 Mg Tablet) 0.1 mg PO TID PRN; Protocol PRN Reason: severe anxiety Last Admin: 02/25/24 20:25 Dose: 0.1 mg Magnesium Hydroxide (Milk Of Magnesia 30 Ml Oral.Susp) 30 ml PO DAILY PRN PRN Reason: Constipation Mirtazapine (Mirtazapine 30 Mg Tablet) 30 mg PO BEDTIME [facility] Last Admin: 02/25/24 20:25 Dose: 30 mg Mupirocin (Mupirocin 2 % Oint 22 Gm Tube) 1 appl TOPICAL TID PRN; Protocol PRN Reason: Open Sores Naproxen (Naproxen 500 Mg Tablet) 500 mg PO BID [facility] Last Admin: 02/26/24 06:19 Dose: 500 mg Nicotine (Nicotine 21 Mg Patch.Td24) 21 mg TRANSDERMA DAILY [facility] Last Admin: 02/26/24 06:01 Dose: 21 mg Nicotine Polacrilex (Nicotine Polacrilex 2 Mg Gum) 4 mg BUCCAL Q2H PRN PRN Reason: Nicotine Cravings Oxcarbazepine (Oxcarbazepine 300 Mg Tablet) 300 mg PO BID [facility] Last Admin: 02/26/24 08:54 Dose: 300 mg Prazosin HCl 10 mg/ Prazosin (HCl 4 mg) 14 mg PO BEDTIME [facility] Last Admin: 02/25/24 20:26 Dose: 14 mg Zolpidem Tartrate (Zolpidem Tartrate 5 Mg Tablet) 10 mg PO BEDTIME [facility] Last Admin: 02/25/24 20:26 Dose: 10 mg Allergies Allergies Allergy/AdvReac Type Severity Reaction Status Date / Time codeine [CODEINE] Allergy Unknown HIVES Verified 02/20/24 10:28 meperidine [From DEMEROL] Allergy Unknown HIVES Verified 02/20/24 10:28 Assessment & Plan Assessment & Plan (1) Chronic posttraumatic stress disorder: Status: Acute Code(s): F43.12 - Post-traumatic stress disorder, chronic (2) Major depressive episode: Status: Acute Code(s): F32.9 - Major depressive disorder, single episode, unspecified (3) Suicidal ideation: Status: Acute Code(s): R45.851 - Suicidal ideations Plan PTSD, depression 02/21: increase HS prazosin to 12 mg. increase HS remeron to 30 mg. add clonidine 0.1 mg to thorazine 100 mg PRNs. plan to return to [facility]. 02/22: some help from thorazine/clonidine combo. some lightheadedness, keep prazosin at 12 mg QHS. 2 nightmares, up twice in the night. continue current mgmt for now. 02/23: prazosin increased to 14 mg last night. slept better, still 2 nightmares. some unsteadiness, counseled to get up in stages and slowly. hoping to return to [facility] next week sometime. continue current mgmt. 02/24: Active on unit. Social with peers. Attending groups. Patient stated, my depression is getting better. But my anxiety still bad. I'm still having nightmares . Patient observed rocking back and forth while sitting. Per nursing patient slept 6 hours last night. Continue current treatment plan. 02/25: Continue current treatment plan. Patient educated on: diagnosis and medication risk/benefits Reason for continued inpatient stay Substantial Risk for: med/psych decompensation Time Spent With Patient Time: Total time managing care of this patient today _20___ minutes.
[2024-02-26 17:35] VITALS: BP 122/60; PULSE 89
[2024-02-26] MEDS: cloNIDine HCL 0.1 MG TABLET PO ×2 (17:37→20:29)
[2024-02-26] MEDS: chlorproMAZINE HCl 100 MG TABLET PO ×2 (17:37→20:27)
[2024-02-26 19:40] VITALS: BP 109/53; PULSE 98; RESP 16; TEMP 36.8; O2SAT 95
[2024-02-26] MEDS: PRAZOSIN HCL 14 MG PO (20:27)
[2024-02-26] MEDS: Mirtazapine 30 MG TABLET PO (20:29)
[2024-02-26] MEDS: chlorproMAZINE HCl 25 MG TABLET 150 MG PO (20:29)
[2024-02-26] MEDS: Zolpidem Tartrate 5 MG TABLET 10 MG PO (20:29)
[2024-02-27 07:47] VITALS: BP 116/61; PULSE 108; RESP 16; TEMP 36.8; O2SAT 95
[2024-02-27] MEDS: Nicotine 21 MG PATCH.TD24 TRANSDERMA (07:48)
[2024-02-27] MEDS: clonazePAM 1 MG TABLET PO ×3 (08:31→20:49)
[2024-02-27] MEDS: OXcarbazepine 300 MG TABLET PO ×2 (08:31→20:49)
[2024-02-27] MEDS: NaPROXEN 500 MG TABLET PO ×2 (08:31→20:48)
--- NOTE | 2024-02-27 16:06 | P.PNPSI_ITS ---
Subjective Subjective Date of Service: 02/27/24 Reason For Visit: SI/HI Interim History: calm, cooperative. remains improved from last admission and from earlier this stay. reports thorazine and clonidine combo is working well. has appointments for to return to [facility]. planning to discharge . per staff, dep/anx 8. irritable. rocking less. attending groups. D/C . Mental Status Exam Mental Status Exam Narrative: Pt is alert and oriented; behavior is cooperative and calm, observed rocking back and forth; dressed in casual attire; mood is described as anxious ; eye contact appropriate; Speech is normal rate, volume and not pressured; thought process is organized. denies SI/HI/VH/AH. Diagnostics Vital Signs (24Hr): Vital Signs - 24 hr 02/26/24 17:35 02/26/24 19:40 02/26/24 19:40 Temperature 98.2 F 98.2 F Pulse Rate 89 98 98 Respiratory Rate 16 16 Blood Pressure 122/60 109/53 L 109/53 L Pulse Oximetry 95 95 Oxygen Delivery Method Room Air Room Air 02/27/24 07:47 Temperature 98.2 F Pulse Rate 108 H Respiratory Rate 16 Blood Pressure 116/61 Pulse Oximetry 95 Oxygen Delivery Method Room Air BMI result Body Mass Index 28.4 Labs 02/20/24 12:04 02/20/24 12:04 Medications Medications Current Medications Acetaminophen (Acetaminophen 325 Mg Tablet) 650 mg PO Q6H PRN PRN Reason: Headache/Pain Mild Scale (1-3) Last Admin: 02/22/24 08:21 Dose: 650 mg Al Hydroxide/Mg Hydroxide (Magnesium Hydrox/Alum Hydrox 30 Ml Oral.Susp) 30 ml PO Q6H PRN PRN Reason: Heartburn/Nausea Benzocaine (Throat Lozenge, Medicated Lozenge) 1 lozenge MUCOUS MEM Q1H PRN PRN Reason: Sore Throat Chlorpromazine HCl (Chlorpromazine Hcl 100 Mg Tablet) 100 mg PO TID PRN PRN Reason: Agitation Last Admin: 02/26/24 20:27 Dose: 100 mg Chlorpromazine HCl (Chlorpromazine Hcl 25 Mg Tablet) 150 mg PO BEDTIME LOUISE Last Admin: 02/26/24 20:29 Dose: 150 mg Clonazepam (Clonazepam 1 Mg Tablet) 1 mg PO TID LOUISE Last Admin: 02/27/24 14:07 Dose: 1 mg Clonidine HCl (Clonidine Hcl 0.1 Mg Tablet) 0.1 mg PO TID PRN; Protocol PRN Reason: severe anxiety Last Admin: 02/26/24 20:29 Dose: 0.1 mg Magnesium Hydroxide (Milk Of Magnesia 30 Ml Oral.Susp) 30 ml PO DAILY PRN PRN Reason: Constipation Mirtazapine (Mirtazapine 30 Mg Tablet) 30 mg PO BEDTIME [facility] Last Admin: 02/26/24 20:29 Dose: 30 mg Mupirocin (Mupirocin 2 % Oint 22 Gm Tube) 1 appl TOPICAL TID PRN; Protocol PRN Reason: Open Sores Naproxen (Naproxen 500 Mg Tablet) 500 mg PO BID [facility] Last Admin: 02/27/24 08:31 Dose: 500 mg Nicotine (Nicotine 21 Mg Patch.Td24) 21 mg TRANSDERMA DAILY [facility] Last Admin: 02/27/24 07:48 Dose: 21 mg Nicotine Polacrilex (Nicotine Polacrilex 2 Mg Gum) 4 mg BUCCAL Q2H PRN PRN Reason: Nicotine Cravings Oxcarbazepine (Oxcarbazepine 300 Mg Tablet) 300 mg PO BID [facility] Last Admin: 02/27/24 08:31 Dose: 300 mg Prazosin HCl 10 mg/ Prazosin (HCl 4 mg) 14 mg PO BEDTIME [facility] Last Admin: 02/26/24 20:27 Dose: 14 mg Zolpidem Tartrate (Zolpidem Tartrate 5 Mg Tablet) 10 mg PO BEDTIME [facility] Last Admin: 02/26/24 20:29 Dose: 10 mg Allergies Allergies Allergy/AdvReac Type Severity Reaction Status Date / Time codeine [CODEINE] Allergy Unknown HIVES Verified 02/20/24 10:28 meperidine [From DEMEROL] Allergy Unknown HIVES Verified 02/20/24 10:28 Assessment & Plan Assessment & Plan (1) Chronic posttraumatic stress disorder: Status: Acute Code(s): F43.12 - Post-traumatic stress disorder, chronic (2) Major depressive episode: Status: Acute Code(s): F32.9 - Major depressive disorder, single episode, unspecified (3) Suicidal ideation: Status: Acute Code(s): R45.851 - Suicidal ideations Plan PTSD, depression 02/21: increase HS prazosin to 12 mg. increase HS remeron to 30 mg. add clonidine 0.1 mg to thorazine 100 mg PRNs. plan to return to [facility]. 02/22: some help from thorazine/clonidine combo. some lightheadedness, keep prazosin at 12 mg QHS. 2 nightmares, up twice in the night. continue current mgmt for now. 02/23: prazosin increased to 14 mg last night. slept better, still 2 nightmares. some unsteadiness, counseled to get up in stages and slowly. hoping to return to [facility] next week sometime. continue current mgmt. 02/24: Active on unit. Social with peers. Attending groups. Patient stated, my depression is getting better. But my anxiety still bad. I'm still having nightmares . Patient observed rocking back and forth while sitting. Per nursing patient slept 6 hours last night. Continue current treatment plan. 02/25: Continue current treatment plan. 02/26: improved. discharge . return to [facility] . continue current mgmt. Reason for continued inpatient stay Substantial Risk for: harm to self, harm to others, inability to function and rapid decompensation Time Spent With Patient Time: Total time managing care of this patient today __25__ minutes.
[2024-02-27 20:00] VITALS: BP 120/59; PULSE 105; RESP 18; TEMP 36.7; O2SAT 96
[2024-02-27] MEDS: chlorproMAZINE HCl 25 MG TABLET 150 MG PO (20:47)
[2024-02-27 20:49] VITALS: BP 120/60
[2024-02-27] MEDS: PRAZOSIN HCL 14 MG PO (20:49)
[2024-02-27] MEDS: Mirtazapine 30 MG TABLET PO (20:49)
[2024-02-27] MEDS: Zolpidem Tartrate 5 MG TABLET 10 MG PO (20:49)
[2024-02-28] MEDS: Nicotine 21 MG PATCH.TD24 TRANSDERMA (06:36)
[2024-02-28] MEDS: chlorproMAZINE HCl 100 MG TABLET PO (06:37)
--- NOTE | 2024-02-28 06:39 | PC.NURSE ---
requested and given smoking patch at this time.
[2024-02-28 07:25] VITALS: BP 111/57; PULSE 101; RESP 16; TEMP 36.3; O2SAT 96
[2024-02-28] MEDS: clonazePAM 1 MG TABLET PO ×3 (08:40→21:10)
[2024-02-28] MEDS: NaPROXEN 500 MG TABLET PO ×2 (08:40→21:10)
[2024-02-28] MEDS: OXcarbazepine 300 MG TABLET PO ×2 (08:40→21:11)
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
[2024-02-28 20:00] VITALS: BP 119/56; PULSE 100; RESP 20; TEMP 37.1; O2SAT 96
[2024-02-28] MEDS: chlorproMAZINE HCl 25 MG TABLET 150 MG PO (21:08)
[2024-02-28] MEDS: Prazosin HCL 5 MG CAPSULE 15 MG PO (21:09)
[2024-02-28] MEDS: Zolpidem Tartrate 5 MG TABLET 10 MG PO (21:10)
[2024-02-28] MEDS: Mirtazapine 30 MG TABLET PO (21:11)
[2024-02-29] MEDS: Nicotine 21 MG PATCH.TD24 TRANSDERMA (05:38)
[2024-02-29 07:25] VITALS: BP 132/66; PULSE 103; RESP 18; TEMP 37.7; O2SAT 98
[2024-02-29] MEDS: clonazePAM 1 MG TABLET PO (08:32)
[2024-02-29] MEDS: NaPROXEN 500 MG TABLET PO (08:32)
[2024-02-29] MEDS: OXcarbazepine 300 MG TABLET PO (08:32)
== END 2024-02-29 11:45 | disposition home or self-care (01) | DRG 881 ==
LOC: HO.ED 18:41 → HO.PADLT16 02-21 12:38
PROVIDERS: Physician Assistant Medical; Admitting Provider Psychiatry & Neurology Psychiatry; Emergency Provider Emergency Medicine Emergency Medical Services; PCP Internal Medicine; Visit Provider Psychiatry & Neurology Psychiatry
DX: F32.9 Major depressive disorder, single episode, unspecified (principal); R45.851 Suicidal ideations; F43.12 Post-traumatic stress disorder, chronic; R45.850 Homicidal ideations; F17.210 Nicotine dependence, cigarettes, uncomplicated; Z71.6 Tobacco abuse counseling; Z23 Encounter for immunization; Z63.4 Disappearance and death of family member; Z79.899 Other long term (current) drug therapy
CPT/HCPCS: 36415; 80053; 80307; 81003; 84702; 85025; 90656; 93005; 99285; S9485

== ENCOUNTER → 2024-02-21 12:27 | Outpatient (BNV) | payer MEDICARE, SELFPAY | PROVIDERS: Admitting Provider Psychiatry & Neurology Psychiatry; Emergency Provider Emergency Medicine Emergency Medical Services; PCP Internal Medicine; Visit Provider Psychiatry & Neurology Psychiatry | DX: F32.2 Major depressive disorder, single episode, severe without psychotic features (principal); F43.12 Post-traumatic stress disorder, chronic; R45.851 Suicidal ideations | CPT/HCPCS: 90792; 99231; 99232; 99239 ==

== ENCOUNTER 2024-03-19 12:58 | Emergency (ER) | payer MEDICARE, SELFPAY ==
[2024-03-19 13:00] VITALS: BP 138/82; PULSE 82; O2SAT 95
[2024-03-19 13:07] VITALS: BP 103/54; PULSE 79; RESP 20; TEMP 36.4; O2SAT 95; BMI 27.5
--- NOTE | 2024-03-19 13:16 | ED.GENADULT ---
HPI - General Adult General Chief complaint: Psychiatric Symptoms Stated complaint: SI/HI,ANNIVERSARY OF SONS PER EMS Time Seen by Provider: 03/19/24 13:16 History of Present Illness ED Provider: Ting MOORE narrative: The patient is a 53-year-old woman who has been feeling very unhappy over the last few days. Today is the anniversary of her son's murder. She has been going to [place] partial hospitalization program for the last few days because of this. She says that she has been psychiatrically hospitalized twice in the last few years because of depression about her son's murder. Today she went to the partial hospitalization after having spent the night at her own home. She seemed quite upset and the staff at the partial hospitalization felt she should come to the emergency room for psychiatric hospitalization. She was therefore transferred here by ambulance. On arrival in the emergency department the patient became extremely agitated because she has been made to believe that she inpatient bed ready for her. Related Data Home Medications ?Medication ?Instructions ?Recorded ?Confirmed mupirocin 2 % topical ointment 1 appl topical TID PRN Open Sores 02/20/24 02/20/24 naproxen 500 mg tablet 500 mg PO BID 02/20/24 02/20/24 ziprasidone HCl 40 mg capsule 40 mg PO QPM 03/19/24 Previous Rx's ?Medication ?Instructions ?Recorded clonazepam 1 mg tablet 1 mg PO TID 14 days #42 tabs 01/24/24 oxcarbazepine 300 mg tablet 300 mg PO BID 30 days #60 tabs 01/24/24 zolpidem 10 mg tablet 10 mg PO BEDTIME 14 days #14 tabs 01/24/24 clonidine HCl 0.1 mg tablet 0.1 mg PO BID PRN severe anxiety 02/28/24 30 days #60 tabs mirtazapine 30 mg tablet 30 mg PO BEDTIME 30 days #30 tabs 02/28/24 nicotine 21 mg/24 hr daily 21 mg transdermal DAILY PRN 02/28/24 transdermal patch nicotine craving 28 days #28 ea prazosin 5 mg capsule 15 mg (3 x 5 mg) PO BEDTIME 30 02/28/24 days #90 caps Allergies Allergy/AdvReac Type Severity Reaction Status Date / Time codeine [CODEINE] Allergy Unknown HIVES Verified 02/20/24 10:28 meperidine [From DEMEROL] Allergy Unknown HIVES Verified 02/20/24 10:28 fluoxetine [From Prozac] Allergy Unknown Verified 03/19/24 13:10 Review of Systems Review of Systems: Yes all other systems are reviewed and are negative [facility] Social History Social History Household Members: None Housing: Apartment Do you presently have visiting nurse or other home services: No Patient Tobacco Use Status: Current everyday Tobacco user Tobacco use type: Cigarette Cigarette Packs Per Day: 0.25 Cigarettes Per Day: 5.0 Years Smoked: 42 e-Cigarette/Vaping Use: Currently Using Second Hand Smoke Exposure: No Substance Use Type: Marijuana Advance Directives: No Advance Directives Information Provided: Yes Do you have a plan to hurt others: Vague service: No Sexual orientation: Straight/Heterosexual Physical Exam ED Vital Signs: Vital Signs - 24 hr 03/19/24 13:07 03/19/24 13:29 Temperature 97.5 F 98.0 F Pulse Rate 79 93 Respiratory Rate 20 18 Blood Pressure 103/54 L 148/81 H Pulse Oximetry 95 95 Oxygen Delivery Method Room Air Room Air BMI result Body Mass Index 27.5 Const Other: The patient is a 53-year-old woman who is awake and alert and quite agitated and angry. HENIN Head: Yes normal to inspection Face and sinus: Yes normal facial exam Mouth: Normal oral and palatal mucosa present and moist mucous membranes Eyes General: appearance normal, both eyes and all related structures Neck Neck: Yes full ROM Resp Effort & Inspection: normal respiratory effort Auscultation: clear to auscultation bilaterally Cardio Rate: regular rate Rhythm: regular rhythm Heart sounds: S1 normal heart sound present and S2 normal heart sound present GI Other: Abdomen is soft and nontender Skin Other: Skin is dry and unremarkable Neuro Other: The patient was awake and alert. She was very angry and out spoken. Her speech is clear however. Pupils are round equal, extraocular movements are intact, face is symmetrical, moving her neck easily, moving her extremities normally and appropriately with normal strength and coordination. Gait is steady. She is neurologically intact. Extrem Other: No peripheral edema Medications Administered Discontinued Medications Generic Name Dose Route Start Last Admin Trade Name Freq PRN Reason Stop Dose Admin Droperidol 5 mg 03/19/24 17:01 03/19/24 17:06 Droperidol 5 Mg/2 Ml Vial IM 03/19/24 17:02 5 mg ONCE ONE Administration Lorazepam 2 mg 03/19/24 13:23 03/19/24 13:35 Lorazepam 2 Mg/Ml Vial IM 03/19/24 13:24 2 mg ONCE ONE Administration Lorazepam 2 mg 03/19/24 15:26 03/19/24 15:38 Lorazepam 1 Mg Tablet PO 03/19/24 15:27 2 mg ONCE ONE Administration Nicotine 21 mg 03/19/24 14:05 03/19/24 14:20 Nicotine 21 Mg Patch.Td24 TRANSDERMA 03/19/24 14:06 21 mg ONCE ONE Administration Olanzapine 10 mg 03/19/24 13:23 03/19/24 13:35 Olanzapine 10 Mg Vial IM 03/19/24 13:24 10 mg ONCE ONE Administration Medical Decision Making Medical Decision Making MDM Narrative: The patient is a 53-year-old woman who has been depressed recently and was sent to the emergency room by ambulance from a partial hospitalization at [place]. the patient arrived extremely agitated and angry. However she was able to calm down and requests some medication to help her calm down further. She was willing to take injections. She was given 10 mg of IM olanzapine and 2 mg of IM lorazepam. The patient states that she is upset because she is so depressed about the anniversary of her son's murder. The patient is medically clear. Her labs are unremarkable. Her toxicology screen is positive only for marijuana. The patient was moved into the psychiatric area. She continued to be quite agitated was given additional oral lorazepam. Despite this she still felt agitated and I have ordered 5 mg of IM droperidol. The patient is pending an evaluation by the care team. She was placed in physician observation. Lab Data 03/19/24 14:04 03/19/24 14:04 Labs: Lab Results 03/19/24 03/19/24 Range/Units 14:04 14:07 WBC 7.1 (4.8-10.8) X10*3/uL RBC 4.43 (4.20-5.50) X10*6/uL Hgb 13.4 (12.0-16.0) g/dl Hct 38.3 (37.0-47.0) % MCV 86.5 (80.0-98.0) fL MCH 30.2 (27.0-33.0) pg MCHC 35.0 (31.0-35.0) g/dl RDW 13.1 (11.0-16.0) % Plt Count 224 (160-400) X10*3/uL MPV 10.3 (9.4-12.3) fL Immature Gran % (Auto) 0.3 (0.0-0.4) % Neut % (Auto) 54.4 (45-73) % Lymph % (Auto) 35.4 (20-40) % [place] % (Auto) 7.4 (2-11) % Eos % (Auto) 2.1 (0-4) % Baso % (Auto) 0.4 (0-2) % Lymph # (Auto) 2.5 (1.2-4.9) X10*3/uL [place] # (Auto) 0.5 (0.1-1.2) X10*3/uL Eos # (Auto) 0.2 (0.0-0.4) X10*3/uL Baso # (Auto) 0.0 (0.0-0.2) X10*3/uL Abs Immat Gran (auto) 0.02 (0.00-0.03) X10*3/uL Absolute Neuts (auto) 3.9 (2.0-8.3) x10*3/uL Absolute Nucleated RBC 0.000 (0.0-0.012) X10*3/uL Nucleated RBC % (auto) 0.0 (0.0-0.2) /100WBC Sodium 139 (135-145) mmol/L Potassium 3.6 D (3.3-5.1) mmol/L Chloride 104 (96-108) mmol/L Carbon Dioxide 27 (22-29) mmol/L Anion Gap 12 (12-20) BUN 12 (9-16) mg/dL Creatinine 0.78 (0.5-1.4) mg/dL Estim Creat Clear Calc 80.5 Estimated GFR > 60 Random Glucose 126 H (60-115) mg/dL Calcium 9.5 (8.4-10.2) mg/dL Total Bilirubin 0.3 (0.0-1.0) mg/dL Direct Bilirubin 0.1 (0.0-0.5) mg/dL AST 21 (5-31) U/L ALT 13 (0-31) U/L Alkaline Phosphatase 83 (39-117) U/L Total Protein 7.3 (6.5-8.0) g/dL Albumin 4.3 (3.5-5.0) g/dL Beta HCG, Quant < 2 mIU/mL Urine Color Yellow Urine Appearance Clear Urine pH 6.5 (5.0-9.0) Ur Specific [place] <= 1.005 (1.005-1.025) Urine Protein Negative (Neg-Trace) mg/dL Urine Glucose (UA) Negative (Negative) mg/dL Urine Ketones Negative (Negative) mg/dL Urine Blood Negative (Negative) Urine Nitrite Negative (Negative) Ur Leukocyte Esterase Negative (Negative) Urine Opiates Screen Not Detected (Not Detect) Ur Buprenorphine Scrn Not Detected (Not Detect) ng/mL Ur Oxycodone Screen Not Detected (Not Detect) ng/mL Urine Methadone Screen Not Detected (Not Detect) ng/mL Urine Fentanyl Screen Not Detected (Not Detect) Ur Barbiturates Screen Not Detected (Not Detect) Ur Phencyclidine Scrn Not Detected (Not Detect) Ur Amphetamines Screen Not Detected (Not Detect) U Benzodiazepines Scrn Not Detected (Not Detect) Urine Cocaine Screen Not Detected (Not Detect) U Marijuana (THC) Screen POSITIVE H (Not Detect) Ethyl Alcohol < 10 mg/dL Discharge Plan Discharge Clinical Impression: Depression Patient Disposition: Still a Patient Prescriptions: No Action mupirocin 2 % ointment 1 appl topical TID PRN (Reason: Open Sores) naproxen 500 mg tablet 500 mg PO BID clonidine HCl 0.1 mg Tablet 0.1 mg PO BID PRN (Reason: severe anxiety) 30 Days Qty: 60 0RF Protocol: Hold for SBP< HOLD for SBP < : 90 prazosin 5 mg Capsule 15 mg PO BEDTIME 30 Days Qty: 90 0RF mirtazapine 30 mg Tablet 30 mg PO BEDTIME 30 Days Qty: 30 0RF nicotine 21 mg/24 hr Patch 24 Hour 21 mg transdermal DAILY PRN (Reason: nicotine craving) 28 Days Qty: 28 0RF ziprasidone HCl 40 mg capsule 40 mg PO QPM clonazepam 1 mg Tablet 1 mg PO TID 14 Days Qty: 42 0RF oxcarbazepine 300 mg Tablet 300 mg PO BID 30 Days Qty: 60 0RF zolpidem 10 mg tablet 10 mg PO BEDTIME 14 Days Qty: 14 0RF Print Language: Pashto
[2024-03-19 13:29] VITALS: BP 148/81; PULSE 93; RESP 18; TEMP 36.7; O2SAT 95
[2024-03-19] MEDS: OLANZapine 10 MG VIAL IM (13:35)
[2024-03-19] MEDS: LORazepam 2 MG/ML VIAL IM (13:35)
[2024-03-19 14:09] LABS: Basophils Percent Auto 0.4 % (0-2); Eosinophils Absolute Auto 0.2 X10*3/uL (0.0-0.4); Eosinophils Percent Auto 2.1 % (0-4); Hematocrit 38.3 % (37.0-47.0); Hemoglobin 13.4 g/dl (12.0-16.0); Imm Gran Abs Auto 0.02 X10*3/uL (0.00-0.03); Imm Gran Pct Auto 0.3 % (0.0-0.4); Lymphocytes Absolute Auto 2.5 X10*3/uL (1.2-4.9); Lymphocytes Percent Auto 35.4 % (20-40); MANUAL DIFF FLAG NO; Mean Corpuscular Hemoglobin 30.2 pg (27.0-33.0); Mean Corpuscular Volume 86.5 fL (80.0-98.0); Mean Platelet Volume 10.3 fL (9.4-12.3); Monocytes Absolute Auto 0.5 X10*3/uL (0.1-1.2); Monocytes Percent Auto 7.4 % (2-11); Neutrophils Absolute Auto 3.9 x10*3/uL (2.0-8.3); Neutrophils Percent Auto 54.4 % (45-73); Platelet Count 224 X10*3/uL (160-400); Red Blood Count 4.43 X10*6/uL (4.20-5.50); Red Cell Distribution Width 13.1 % (11.0-16.0); White Blood Count 7.1 X10*3/uL (4.8-10.8)
[2024-03-19] MEDS: Nicotine 21 MG PATCH.TD24 TRANSDERMA (14:20)
[2024-03-19 14:30] LABS: Amphetamine Screen Urine Not Detected (Not Detect); Barbiturates, Urine Not Detected (Not Detect); Benzodiazepines Screen Urine Not Detected (Not Detect); Buprenorphine Scr Not Detected (Not Detect); Cannabinoid Screen Urine POSITIVE (Not Detect); Cocaine Screen Urine Not Detected (Not Detect); Fentanyl, urine Not Detected (Not Detect); Methadone Screen, Urine Not Detected (Not Detect); Opiate Screen Urine Not Detected (Not Detect); Oxycodone Screen Urine Not Detected (Not Detect); Phencyclidine Screen Urine Not Detected (Not Detect)
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
[2024-03-19 14:47] LABS: Alanine Aminotransferase 13 U/L (0-31); Albumin Level 4.3 g/dL (3.5-5.0); Alkaline Phosphatase 83 U/L (39-117); Anion Gap 12 (12-20); Aspartate Amino Transferase 21 U/L (5-31); Bilirubin Direct 0.1 mg/dL (0.0-0.5); Bilirubin Total 0.3 mg/dL (0.0-1.0); Blood Urea Nitrogen 12 mg/dL (9-16); Calcium 9.5 mg/dL (8.4-10.2); Carbon Dioxide 27 mmol/L (22-29); Chloride 104 mmol/L (96-108); Creatinine Clr Calc Pharmacy 80.5; Estimated Glomerular Filt Rate > 60; Ethanol < 10 mg/dL; Glucose Random 126 mg/dL (60-115); HCG Quantitative < 2 mIU/mL; Potassium 3.6 mmol/L (3.3-5.1); Sodium 139 mmol/L (135-145); Total Protein 7.3 g/dL (6.5-8.0)
[2024-03-19 15:08] LABS: Appearance Urine Clear; Color Urine Yellow; Glucose Urine UA Negative (Negative); Leukocyte Esterase Urine Negative (Negative); Nitrite Urine Negative (Negative); PH 6.5 (5.0-9.0); Specific Gravity - Urine <= 1.005 (1.005-1.025); Urine Blood Negative (Negative); Urine Ketones Negative (Negative); Urine Protein Negative (Neg-Trace)
[2024-03-19] MEDS: LORazepam 1 MG TABLET 2 MG PO (15:38)
--- NOTE | 2024-03-19 15:43 | PC.NURSE ---
pt verbalizes increase in anxiety despite previous interventions. MD notified/aware. medication administered per provider order. effectiveness pending. pt sitting/covered in blanket rocking back and forth seemingly agitated. states that she is upset as she was told by [facility] that she will be admitted as inpatient immediately and did not have to be evaluated in the ED prior. pt educated/aware of process and steps needed to speak to care team to formulate game plan. to agreeable to plan. plan of care ongoing.
--- NOTE | 2024-03-19 17:01 | PC.NURSE ---
pt currently remains agitated despite previous medication administration. pt continuously swearing/yelling at staff/making threats that she is going to throw things and assault people. pt making SI statements that she wishes that she just jumped off a bridge. notified/aware of pt's escalation.
[2024-03-19] MEDS: droPERidol 5 MG/2 ML VIAL IM (17:06)
--- NOTE | 2024-03-19 17:12 | PC.NURSE ---
bedside assessing pt as pt becomes increasingly agitated/verbally abusive towards staff. pt agreeable to IM medication administration as previous medication administration was not effective. medication administered per provider order. effectiveness pending.
--- NOTE | 2024-03-19 18:02 | MHC.CARE ---
Referral faxed to [facility].
--- NOTE | 2024-03-19 19:08 | PC.NURSE ---
report received from Mary Anne MARIA, assume care of pt at this time
--- NOTE | 2024-03-19 20:25 | MHC.CARE ---
Pt was accepted to [address] for 1130AM. She needs to be there for this time. Also, pt needs to have all of her medications in the original bottle when she arrives.
--- NOTE | 2024-03-19 22:38 | PHA.MEDREC ---
Addendum entered by Luigi Kidd RPh 03/19/24 22:41: MED REC CHECKED BY [facility] Original Note: Pharmacy Consult ? Medication Reconciliation Pharmacy has completed the medication reconciliation. Spoke with patient and she confirmed her medications. She confirmed she takes her medications at certain times during the day and she takes them at 0800,1500 and 2000 and she last took her medications this morning at 0800.
--- NOTE | 2024-03-19 23:52 | PC.NURSE ---
pt resting quietly on bed, with eyes closed, resp with ease, no s/s of acute distress, will cont plan of care
[2024-03-20 02:57] VITALS: BP 127/58; PULSE 69; RESP 16; TEMP 36.7; O2SAT 98
--- NOTE | 2024-03-20 03:01 | MHC.EDTECH ---
at this time this pt came out the room and asked for more pajamas due to being cold, pt was given a fresh set of hospital pants and gown which she put on over her previous set, pt vital signs taken and given two warm blankets for comfort
[2024-03-20] MEDS: Nicotine 21 MG PATCH.TD24 TRANSDERMA (03:10)
--- NOTE | 2024-03-20 03:12 | PC.NURSE ---
pt awake and asking for a nicotine patch, states, she took the other one off, state, you are not supposed to sleep with them' Spoke with dr cui, and ok to put order in for nicotine patch. When pt was asked, where her home meds, were? She replied, they are at home
[2024-03-20] MEDS: LORazepam 1 MG TABLET 2 MG PO ×2 (04:22→07:53)
--- NOTE | 2024-03-20 04:23 | PC.NURSE ---
pt very agitated, rocking in the chair, pt requests something for anxiety, spoke with dr Plaza, verbal order for Ativan 2mg po, received and carried out.
--- NOTE | 2024-03-20 04:35 | PC.NURSE ---
when asked, pt states all her medicine is at home, and no one can bring it to her, everyone stopped talking to me
[2024-03-20] MEDS: cloNIDine HCL 0.1 MG TABLET PO (08:53)
[2024-03-20 09:07] VITALS: RESP 16
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
[2024-03-20 09:54] VITALS: BP 129/68; PULSE 89; RESP 16; TEMP 36.3; O2SAT 97
== END 2024-03-20 10:18 | disposition home or self-care (01) ==
PROVIDERS: Emergency Provider Emergency Medicine; PCP Internal Medicine
DX: F32.A Depression, unspecified (principal); R45.1 Restlessness and agitation; R45.851 Suicidal ideations; Z79.899 Other long term (current) drug therapy
CPT/HCPCS: 36415; 80048; 80076; 80307; 81003; 84702; 85025; 96372; 99284; 99285; J1790; J2060; J2359; S9485

== ENCOUNTER 2024-05-31 12:19 | Outpatient (REF) | payer MEDICARE, SELFPAY ==
[2024-05-31 13:36] LABS: Alanine Aminotransferase 14 U/L (0-31); Albumin Level 4.3 g/dL (3.5-5.0); Alkaline Phosphatase 81 U/L (39-117); Anion Gap 14 (12-20); Aspartate Amino Transferase 17 U/L (5-31); Bilirubin Total 0.1 mg/dL (0.0-1.0); Blood Urea Nitrogen 11 mg/dL (9-16); Calcium 9.2 mg/dL (8.4-10.2); Carbon Dioxide 26 mmol/L (22-29); Chloride 104 mmol/L (96-108); Cholesterol 214 mg/dL (<200); Estimated Glomerular Filt Rate > 60; Glucose Random 100 mg/dL (60-115); HDL Cholesterol 53 mg/dL (>40); LDL Cholesterol Calculated 133 mg/dL (<100); Potassium 3.7 mmol/L (3.3-5.1); Sodium 140 mmol/L (135-145); Total Protein 7.4 g/dL (6.5-8.0); Triglycerides 143 mg/dL (<150)
== END 2024-05-31 12:20 | disposition home or self-care (01) ==
LOC: HO.LAB 12:19
PROVIDERS: PCP Internal Medicine; Visit Provider Internal Medicine
DX: Z00.01 Encounter for general adult medical examination with abnormal findings (principal); F43.12 Post-traumatic stress disorder, chronic; J44.1 Chronic obstructive pulmonary disease with (acute) exacerbation; M51.16 Intervertebral disc disorders with radiculopathy, lumbar region; R21 Rash and other nonspecific skin eruption; Z72.0 Tobacco use
CPT/HCPCS: 36415; 80053; 80061